=== PATIENT | female | born 1965 | race Caucasian/White ===

== ENCOUNTER 2017-04-11 08:07 | Outpatient (CLI) | payer OTHER ==
--- NOTE | 2017-04-11 10:39 | MRI ---
LUMBAR SPINE MRI: DATE: 04/11/17. COMPARISON: None. HISTORY: Back locks up, bilateral lower extremity radiculopathy, pain, lumbar radiculopathy. TECHNIQUE: Multiplanar, multisequence MR imaging of the lumbar spine provided without contrast. FINDINGS: The sagittal STIR imaging demonstrates no focal area of osseous marrow edema. At the L2 vertebral edgar dy, there is a lesion of increased T1 and T2 signal, evidence of hemangioma. Additional scattered he mangiomata are noted elsewhere within the lumbar spine. Assuming 5 lumbar-type vertebral bodies, the conus medullaris terminates at the L1-2 level. T12-L1: Mild bilateral facet hypertrophy. There is disk space narrowing and disk desiccation with a nterior osteophyte formation and a posterior disk-osteophyte complex. This causes no significant tamar tral canal or neural foraminal stenosis. L1-2: Mild bilateral facet hypertrophy. There is disk space narrowing and disk desiccation with ant erior osteophyte formation and a small posterior disk-osteophyte complex. No associated central amarjit l stenosis. There is mild bilateral neural foraminal stenosis. L2-3: Bilateral facet hypertrophy. There is a foraminal and post-foraminal disk protrusion on the l eft. There is mild left neural foraminal stenosis. No significant central canal or right neural for aminal stenosis. L3-4: Mild bilateral facet hypertrophy. There is disk space narrowing, disk desiccation, and mild d isk bulge with no significant central canal or neural foraminal stenosis. L4-5: There is disk desiccation, disk space narrowing, and mild disk bulge. There is mild bilateral facet hypertrophy. There is no significant central canal or neural foraminal stenosis. L5-S1: Mild bilateral facet hypertrophy. Normal intervertebral disk height and signal intensity wit h no significant central canal or neural foraminal stenosis. Small central annular tear noted. The imaged retroperitoneal structures appear grossly unremarkable. IMPRESSION: Scattered areas of degenerative change within the lumbar spine as described above. POS: [facility]
== END 2017-04-11 08:08 | disposition home or self-care (01) ==
LOC: TBSIIMAG 08:07
PROVIDERS: ATTEND Neurological Surgery
DX: M47.26 Other spondylosis with radiculopathy, lumbar region (principal)
CPT/HCPCS: 72148

== ENCOUNTER 2017-09-02 14:07 | Outpatient (CLI) | payer OTHER ==
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
== END 2017-09-02 14:08 | disposition home or self-care (01) ==
LOC: SCSMRI 14:07
PROVIDERS: ATTEND Orthopaedic Surgery Hand Surgery
DX: S63.512A Sprain of carpal joint of left wrist, initial encounter (principal); S63.591A Other specified sprain of right wrist, initial encounter

== ENCOUNTER 2017-11-04 09:32 | Outpatient (CLI) | payer OTHER ==
[2017-11-04 10:14] LABS: Bilirubin Negative (Negative); Blood, Urine Negative (Negative); Clarity CLEAR (Clear); Glucose, Urine (Dipstick) Negative (Negative); Leukocyte Negative (Negative); Nitrite Negative (Negative); Protein, Urine (Dipstick) Negative (Neg-Trace); Urobilinogen 0.2 mg/dL (0.2-1.0); pH, Urine 6.5 (5.0-9.0)
[2017-11-04 10:21] LABS: Bacteria/HPF Rare-Few HPF (None Seen); Hyaline Casts/LPF 0-3 HYALINE CAST LPF (0-3 Hyaline); Pathc Cast-AUWi Flag 0.29 (0-2.49); RBC/HPF 0-3 HPF (0-3); Squamous Epithelial 0-3 HPF (0-3); WBC/HPF 0-3 HPF (0-3)
[2017-11-04 10:22] LABS: #Basophils 0.1 thou/uL (0.0-0.2); #Eosinphils 0.3 thou/uL (0.0-0.7); #Lymphocytes 2.6 thou/uL (1.20-3.40); #Monocytes 0.4 thou/uL (0.11-0.59); #Neutrophils 2.6 thou/uL (1.40-6.50); %Basophils 1.4 % (0.0-1.0); %Eosinophils 4.3 % (0.0-10.0); %Lymphocytes 44.6 % (21.0-51.0); %Monocytes 6.2 % (0.0-10.0); %Neutrophils 43.4 % (42.0-75.0); Hemoglobin 14.8 g/dL (12.0-16.0); Mean Corpuscular HGB CONC 33.5 g/dL (32.0-36.0); Mean Corpuscular Hemoglobin 30.3 pg (27.0-31.0); Mean Corpuscular Volume 90.3 fL (78.0-98.0); Mean Platelet Volume 7.8 fL (7.4-10.4); Platelet Count 242 thou/uL (130-400); Red Blood Cell (RBC) Count 4.91 mill/uL (4.20-5.40); White Blood Cell (WBC) Count 5.9 thou/uL (4.8-10.8)
== END 2017-11-04 09:33 | disposition home or self-care (01) ==
LOC: LABBT 09:32
PROVIDERS: ATTEND Orthopaedic Surgery Hand Surgery
DX: Z01.812 Encounter for preprocedural laboratory examination (principal); M65.4 Radial styloid tenosynovitis [de Quervain]
CPT/HCPCS: 81001; 85025

== ENCOUNTER 2017-11-12 08:20 | Day surgery (SDC) | payer OTHER ==
[2017-11-04 09:38] VITALS: BMI 31.5
[2017-11-12] MEDS ORDERED: Ondansetron HCl/PF 4 MG/2 ML Vial ONE (09:35)
[2017-11-12] MEDS ORDERED: Scopolamine 1.5 mg/72 hour Patch ONE (09:35)
[2017-11-12] MEDS ORDERED: Famotidine/PF 20 mg/2ml Vial ONE (09:35)
[2017-11-12] MEDS ORDERED: CEFAZOLIN/Water 2 GM/20 ML SYRINGE ONE (09:35)
[2017-11-12] MEDS ORDERED: Promethazine HCl 25 MG/ML VIAL ONE (11:29)
[2017-11-12] MEDS ORDERED: Propofol 500 MG/50 ML VIAL ONE (11:29)
[2017-11-12] MEDS ORDERED: Fentanyl 100 MCG/2 ML VIAL ONE (11:29)
[2017-11-12] MEDS ORDERED: Midazolam HCl 2 mg/2 ml Vial ONE (11:29)
[2017-11-12] MEDS ORDERED: Bupivacaine PF 0.5% 30 ML VIAL ONE (11:30)
[2017-11-12] MEDS ORDERED: Betamet Acet/Betamet Na Ph 30 MG/5 ML VIAL ONE (11:30)
[2017-11-12] MEDS ORDERED: Sodium Chloride 0.9% 10 ML ONE (11:30)
[2017-11-12] MEDS ORDERED: Bacitracin Zinc Ointment 30 gm TUBE ONE (11:31)
[2017-11-12] MEDS ORDERED: PHENYLEPHRINE-NS 100 MCG/ML 10 ML SYRINGE ONE (13:00)
[2017-11-12] MEDS ORDERED: Lidocaine 1% PF 5 ML VIAL ONE (13:00)
[2017-11-12] MEDS ORDERED: Ketorolac Tromethamine 30 MG/ML VIAL ONE ×2 (13:00→13:20)
[2017-11-12] MEDS ORDERED: PROPOFOL 200 MG/20 ML VIAL ONE (13:00)
[2017-11-12] MEDS ORDERED: Dexamethasone 20 MG/5 ML VIAL ONE (13:00)
[2017-11-12] MEDS ORDERED: Succinylcholine Chloride 20 MG/ML 10 ml SYRINGE FS ONE (13:00)
--- NOTE | 2017-11-12 13:43 | OP ---
DATE OF PROCEDURE: 11/12/2017 SURGEON: Phillip Valencia M.D. PREOPERATIVE DIAGNOSES: 1. Right wrist extensor carpi ulnaris tendonitis. 2. Right wrist first dorsal compartment tenosynovitis with De Quervain's tenosynovitis. FINDINGS: Very tight retinaculum first dorsal compartment with 4 sleeves of tendon, 3 of abductor, s een within the canal and marked thickening. PROCEDURE PERFORMED: 1. Injection, extensor carpi ulnaris tendon (injection tendon aponeurosis) ulnar side of the right w rist. 2. Open first dorsal compartment release. 3. Extensor tenosynovectomy abductor pollicis longus tendon at the first dorsal compartment. COMPLICATIONS: None. INDICATION: Failed conservative treatment at both spots with MRI consistent with mild early fraying and tendinitis of the extensor carpi ulnaris without tear. DESCRIPTION OF PROCEDURE: After successful general endotracheal anesthesia, the limb was prepped and draped. The patient then had the 2 sites identified with the zigzag incision outlined, 2 cm long ov er the first dorsal compartment. It was here that we injected first with a 8 mL of 0.5% Marcaine aft er prep and drape as well as the injection, the aponeurosis into the extensor carpi ulnaris tendon wa s done under direct visualization using a 22 gauge needle, 1 mL 0.5% Marcaine with 1 mL of Celestone. This was tolerated well. We inflated tourniquet after exsanguinating the limb to 250 mmHg pressure. We then made a zigzag inc ision first dorsal compartment and released and visualized the superficial radial nerve branch, prote cting it from the center of the field with gentle retraction. We then visualized the very tight reti naculum, released retinacular with approximately 2/3 of the remnant being palm to prevent subluxation . We lifted up each tendon and found 4 separate tendon sleeves, 3 of which went to the abductor poll icis longus and only 1 to the extensor pollicis brevis. Extensor pollicis brevis nodule is in a sepa rate compartment so release of the outer sheath released it as well. There was moderate tenosynoviti s and thickening of the abductor pollicis longus tendon, so we performed an abductor pollicis longus radical extensor tenosynovectomy. No specimen was sent. We released the tourniquet. Hemostasis was obtained. We placed, 2 mL of Celestone along the tendon area and then closed the wound with a simple interrupted 4-0 nylon in a mattress pattern.
== END 2017-11-12 14:47 | disposition home or self-care (01) ==
LOC: SDC 08:20
PROVIDERS: ATTEND Orthopaedic Surgery Hand Surgery
PROC: 0LT50ZZ Resection of Right Lower Arm and Wrist Tendon, Open Approach (ICD-10-PCS; principal; 2017-11-12)
PROC: 3E0U3BZ Introduction of Anesthetic Agent into Joints, Percutaneous Approach (ICD-10-PCS; principal; 2017-11-12)
PROC: 3E0U33Z Introduction of Anti-inflammatory into Joints, Percutaneous Approach (ICD-10-PCS; principal; 2017-11-12)
DX: M65.4 Radial styloid tenosynovitis [de Quervain] (principal); M65.88 Other synovitis and tenosynovitis, other site; G43.909 Migraine, unspecified, not intractable, without status migrainosus; E55.9 Vitamin D deficiency, unspecified; Z79.82 Long term (current) use of aspirin; Z79.899 Other long term (current) drug therapy; Z91.041 Radiographic dye allergy status; Z88.5 Allergy status to narcotic agent; Z88.8 Allergy status to other drugs, medicaments and biological substances
CPT/HCPCS: 96372; 96374; A4216; J0702; J1100; J1885; J2001; J2250; J2405; J2550; J2704; J3010; J3490; S0020; S0028

== ENCOUNTER 2017-12-10 10:20 | Outpatient (CLI) | payer OTHER | END 2017-12-10 10:21 | disposition home or self-care (01) | LOC: BICMAMMO 10:20 | PROVIDERS: ATTEND Family Medicine | DX: Z12.31 Encounter for screening mammogram for malignant neoplasm of breast (principal); Z85.820 Personal history of malignant melanoma of skin | CPT/HCPCS: 77063; 77067 ==

== ENCOUNTER 2018-05-29 07:42 | Outpatient (CLI) | payer OTHER ==
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
== END 2018-05-29 07:43 | disposition home or self-care (01) ==
LOC: BICMRI 07:42
PROVIDERS: ATTEND Orthopaedic Surgery Hand Surgery
DX: M25.531 Pain in right wrist (principal); M25.532 Pain in left wrist

== ENCOUNTER 2018-11-20 10:09 | Outpatient (CLI) | payer OTHER ==
[2018-11-20 11:25] LABS: #Eosinphils 0.2 thou/uL (0.0-0.7); #Lymphocytes 2.1 thou/uL (1.20-3.40); #Monocytes 0.5 thou/uL (0.11-0.59); #Neutrophils 2.9 thou/uL (1.40-6.50); %Basophils 0.8 % (0.0-1.0); %Eosinophils 3.7 % (0.0-10.0); %Lymphocytes 36.7 % (21.0-51.0); %Monocytes 8.4 % (0.0-10.0); %Neutrophils 50.3 % (42.0-75.0); Hemoglobin 14.7 g/dL (12.0-16.0); Mean Corpuscular HGB CONC 32.7 g/dL (32.0-36.0); Mean Corpuscular Hemoglobin 30.1 pg (27.0-31.0); Mean Corpuscular Volume 91.9 fL (78.0-98.0); Mean Platelet Volume 8.6 fL (7.4-10.4); Platelet Count 225 thou/uL (130-400); RBC Distribution Width 12.2 % (11.5-14.5); White Blood Cell (WBC) Count 5.8 thou/uL (4.8-10.8)
[2018-11-20 11:39] LABS: Bilirubin Negative (Negative); Blood, Urine Negative (Negative); Clarity Clear (Clear); Glucose, Urine (Dipstick) Normal (Negative); Leukocyte Negative Leu/uL (Negative); Nitrite Negative (Negative); Protein, Urine (Dipstick) Negative (Neg-Trace); RBC/HPF 0-3 HPF (0-3); Squamous Epithelial 0-3 HPF (0-3); Urobilinogen Normal mg/dL (Less than 2); WBC/HPF 0-3 HPF (0-3)
[2018-11-20 11:43] LABS: Bacteria/HPF 1+ HPF (None Seen)
--- NOTE | 2018-11-20 16:59 | EKG ---
Test Reason : Blood Pressure : / mmHG Vent. Rate : 068 BPM Atrial Rate : 068 BPM P-R Int : 140 ms QRS Dur : 072 ms QT Int : 388 ms P-R-T Axes : 048 017 063 degrees QTc Int : 412 ms Normal sinus rhythm Low voltage QRS Cannot rule out Anterior infarct , age undetermined Abnormal ECG When compared with ECG of 11-JUN-2011 11:27, No significant change was found Confirmed by DR. Ronal STAPLETON ([id number]) on 11/20/2018 4:58:54 PM Referred By: ICTLALI Confirmed By:DR. Ronal STAPLETON
== END 2018-11-20 10:10 | disposition home or self-care (01) ==
LOC: LABBT 10:09
PROVIDERS: ATTEND Orthopaedic Surgery Hand Surgery
DX: Z01.818 Encounter for other preprocedural examination (principal); M77.8 Other enthesopathies, not elsewhere classified
CPT/HCPCS: 81001; 85025; 93005; 93010

== ENCOUNTER 2018-11-24 11:48 | Day surgery (SDC) | payer OTHER ==
[2018-11-20 10:37] VITALS: BMI 32.8
[2018-11-24] MEDS ORDERED: Midazolam HCl 2 mg/2 ml Vial ONE (12:30)
[2018-11-24] MEDS ORDERED: Fentanyl 100 MCG/2 ML VIAL ONE ×2 (12:30→13:22)
[2018-11-24] MEDS ORDERED: Scopolamine 1.5 mg/72 hour Patch ONE (12:38)
[2018-11-24] MEDS ORDERED: ceFAZolin Sodium (SDC) 2 GM/100 ML BAG ONE (12:49)
[2018-11-24] MEDS ORDERED: Bupivacaine PF 0.5% 30 ML VIAL ONE (13:04)
[2018-11-24] MEDS ORDERED: Bacitracin Zinc Ointment 30 gm TUBE ONE (13:04)
[2018-11-24] MEDS ORDERED: EPINEPHrine 1 MG/ML AMP ONE (13:04)
[2018-11-24] MEDS ORDERED: Propofol 1,000 MG/100 ML VIAL IV ONE (13:36)
[2018-11-24] MEDS ORDERED: Betamet Acet/Betamet Na Ph 30 MG/5 ML VIAL ONE (14:53)
[2018-11-24] MEDS ORDERED: Meperidine HCl/PF 25 MG/ML VIAL ONE (15:30)
--- NOTE | 2018-11-25 09:19 | OP ---
DATE OF PROCEDURE: 11/24/2018 PREOPERATIVE DIAGNOSIS: 1. Extensor carpi ulnaris tendinitis with possible interstitial tear. 2. Extensor carpi ulnaris tenosynovitis. 3. Proximal wrist synovitis. 4. Possible triangular fibrocartilage complex tear. FINDINGS: 1. Extensor carpi ulnaris tendinitis with possible interstitial tear with findings of almost 2 cm long strands of tears x3, beginning just proximal to the ulnar styloid course almost to the insertional area of extensor carpi ulnaris. 2. Extensor carpi ulnaris tenosynovitis. 3. Wrist synovitis, diffuse without triangular fibrocartilage tear, without intercarpal ligament tear, and significant chondromalacia not seen. PROCEDURES PERFORMED: At the left wrist; 1. Left extensor carpi ulnaris tenotomy. 2. Left extensor carpi ulnaris tenosynovectomy. 3. Left wrist arthroscopic synovectomy. SPECIMENS: Removed and sent to the lab, yes: 1. Tendon tear as a longitudinal after resection via tenotomy. 2. Tenosynovectomy with the synovial sampling of extensor carpi ulnaris. BLOOD LOSS: 10 mL. TOURNIQUET TIME: 19 minutes. INDICATIONS: The patient with pain of ulnar wrist. MRI showed no TFCC tear, no lunotriquetral tear, no ulnocarpal impingement, but there is always a question of triangular fibrocartilage tear based on exam and the MRI did show the extensor carpi ulnaris tendon had some longitudinal tearing, which must be addressed. DESCRIPTION OF PROCEDURE: After successful general without LMA technique, the limb was prepped and draped. The patient also had a block. She was placed in arm frost, after prepping and draping, and appropriate drapes were applied. We then established the 3/4 portal by placing two to three 3/4 portals, an 18-gauge regular needle, 10 mL normal saline. We then entered the joint at the 6R portal and the 3/4 portal. Panoramic view revealed intact intercarpal ligament and alignment, no triangular fibrocartilage tear, but some marked synovitis in the dorsal portion of the wrist at the radial ulnar articulation. This was trimmed with a 1.9 synovial resector, full-radius, and then we visualized intact TFCC, lateral recess, prestyloid and ulnar styloid recess was intact. There was no undue tension by the ulna on the triangular fibrocartilage. The lunotriquetral ligament was intact as was the scapholunate ligament. There was no radial styloid abnormality. The patient had all the scope removed. We closed the portals on the 3/4 area. We exsanguinated the limb, inflated the tourniquet at 250 mmHg pressure using the 6R portal as the most dorsal portion of our dissection and then carried volarly by 8 mm in length of 1 cm on either side of the wound. We carried to the skin and subcutaneous tissue and visualized the Y-type cachil dehe's foot bifurcation of the superficial ulnar nerve and protected from this in the field. We entered the tendon sheath, protecting the ulnar nerve, superficial branches, it was very thick, performed a formal tenosynovectomy especially under deep to the extensor carpi ulnaris and then found the longitudinal more dorsal and then ulnar, fraying aspects of the extensor carpi ulnaris tendon with the retinaculum moved. We then trimmed this to normal thickness, then used as a point of reference. Once the tenosynovectomy was completed from the extensor carpi ulnaris sheath, we then performed the tenotomy and finished. Once this was done, the panoramic view was completed, the arthroscope had been placed in the 6U and we saw no TFCC tear with excellent trampoline effect. On exam, with the shaver in the 3/4 portal, we then did arthroscopic synovectomy. All scope had been completely removed this time, we closed the sheath on the tenotomized and synovectomied extensor carpi ulnaris. flexor carpi ulnaris was not involved. The wounds were closed with hemostasis obtained, using interrupted 4-0 Monocryl, using the sheath, closure with a running 5-0 Prolene, dyed, excellent tension was found. We closed the subcutaneous tissue with interrupted 4-0 Monocryl and then the incision was closed with interrupted 4- 0 nylon mattress pattern except for the angle, which was simple. The portal was closed with the same 4-0 suture, and the patient had the Celestone injected in the tendon sheath before we closed the sheath. The patient had a short-arm splint applied and left the operating room without evidence of anesthetic or operative complication. Job ID: [id number]
== END 2018-11-24 14:10 | disposition home or self-care (01) ==
LOC: SDC 11:48
PROVIDERS: ATTEND Orthopaedic Surgery Hand Surgery
PROC: 0LB60ZZ Excision of Left Lower Arm and Wrist Tendon, Open Approach (ICD-10-PCS; principal; 2018-11-24)
PROC: 0RBP4ZZ Excision of Left Wrist Joint, Percutaneous Endoscopic Approach (ICD-10-PCS; principal; 2018-11-24)
PROC: 3E0T3BZ Introduction of Anesthetic Agent into Peripheral Nerves and Plexi, Percutaneous Approach (ICD-10-PCS; principal; 2018-11-24)
DX: M77.9 Enthesopathy, unspecified (principal); M65.832 Other synovitis and tenosynovitis, left forearm; S56.512A Strain of other extensor muscle, fascia and tendon at forearm level, left arm, initial encounter; G89.18 Other acute postprocedural pain; E07.9 Disorder of thyroid, unspecified; G43.909 Migraine, unspecified, not intractable, without status migrainosus; Z91.041 Radiographic dye allergy status; Z88.5 Allergy status to narcotic agent; Z88.8 Allergy status to other drugs, medicaments and biological substances; Z79.82 Long term (current) use of aspirin; Z79.899 Other long term (current) drug therapy
CPT/HCPCS: 88304; J0171; J0690; J0702; J2175; J2250; J2704; J3010; S0020

== ENCOUNTER 2018-12-31 10:36 | Outpatient (CLI) | payer OTHER ==
--- NOTE | 2018-12-31 11:41 | MMO ---
Bilateral MAMMO Bilat Screen [facility]. CLINICAL HISTORY: Patient is 53 years old and is seen for screening. The patient has no family history of breast cancer. The patient has a history of Skin cancer at age 38. The patient has a history of left Excisional Biopsy in 1999 - benign. VIEWS: The views performed were: bilateral craniocaudal with tomosynthesis and bilateral mediolateral oblique with tomosynthesis. FILMS COMPARED: The present examination has been compared to prior imaging studies performed at on 10/14/2008 and 12/10/2017. MAMMOGRAM FINDINGS: The breasts are heterogeneously dense, which could obscure a lesion on mammography. There are no suspicious masses, suspicious calcifications, or new areas of architectural distortion. IMPRESSION: THERE IS NO MAMMOGRAPHIC EVIDENCE OF MALIGNANCY. A ROUTINE FOLLOW-UP MAMMOGRAM IN 1 YEAR IS RECOMMENDED. THE RESULTS OF THIS EXAM WERE SENT TO THE PATIENT. ACR BI-RADS Category 1 - Negative MAMMOGRAPHY NOTE: 1. A negative mammogram report should not delay a biopsy if a dominant of clinically suspicious mass is present. 2. Approximately 10% to 15% of breast cancers are not detected by mammography. 3. Adenosis and dense breasts may obscure an underlying neoplasm. Reported by: ZANE DEAL MD Electonically Signed: [id number]
== END 2018-12-31 10:37 | disposition home or self-care (01) ==
LOC: BICMAMMO 10:36
PROVIDERS: ATTEND Family Medicine
DX: Z12.31 Encounter for screening mammogram for malignant neoplasm of breast (principal); Z85.828 Personal history of other malignant neoplasm of skin; Z91.89 Other specified personal risk factors, not elsewhere classified
CPT/HCPCS: 77063; 77067

== ENCOUNTER 2019-02-24 07:38 | Outpatient (CLI) | payer OTHER ==
--- NOTE | 2019-02-24 11:01 | RAD ---
Procedure: Left wrist arthrogram Preprocedure diagnosis: Left wrist pain [employer] Supervisor: Caro Anesthesia: 2 mL of buffered 1% lidocaine Contrast: 2 mL of gadolinium admixture Exposure: 3.4 Minutes fluoroscopic time; 0.577 morales per centimeter squared TECHNIQUE: Prior to the procedure, the risks and benefits of a wrist arthrogram were explained to the patient wh ich consented fully to the procedure. Supervisor [employer] radiographs were performed showing no significant degenerative changes. No fracture or dislocat ion are seen. A radiopaque marker was used to keri the site of best entry into the wrist joint. The wrist was then prepped and draped in the usual sterile fashion. Lidocaine was used to anesthetize the skin and soft tissues down to the joint. A 25-gauge spinal needle was then placed using fluoroscopic guidance into the joint. Contrast was adm inistered which conformed to the joint. There was a small amount of extravasation of contrast along the dorsal aspect of the wrist. A total of 2 mL of contrast was administered which adequately disten ded the capsule. The needle was then removed. The patient tolerated the procedure well without immediate post procedure complication. They were sen t to MRI for MRI of the wrist.
--- NOTE | 2019-02-24 15:47 | MRI ---
MR ARTHROGRAM OF THE LEFT WRIST: 02/24/19 INDICATION: History of primary arthritis of the left wrist. COMPARISON: MR of the left hand dated 05/29/18 and left wrist arthrogram dated 02/24/19. TECHNIQUE: Multiplanar and multisequence MR images were obtained of the left wrist following intra-articular adm inistration of a dilute gadolinium solution. Please see the left wrist arthrogram for details concern ing the injection technique. A moderate amount of extravasation is seen within the dorsal soft tissues. FINDINGS: There is contrast intensity noted within the radiocarpal joint, mid carpal joint, distal carpometacar pal articulations. There is visualization of portions of the dorsal and volar band of the scapholunat e ligament as well as the interosseous band. The lunatotriquetral ligament appears intact. The TFC is intact. There is mild first CMC osteoarthritic change with a subchondral cyst-like abnormality invol ving the base of the thumb metacarpal. The visualized carpal tunnel and its contents appear within no rmal limits. Ulnar neurovasculature appears within normal limits. The visualized extensor tendons are normal appearing. IMPRESSION: 1. Contrast extension seen diffusely entering through the radiocarpal joint, mid carpal joint, a nd distal carpometacarpal articulations is likely either related to technique of the wrist arthrogram injection or possibly small perforations within the scapholunate and intercarpal ligamentous structu res. Majority of the scapholunate ligament appears intact. The lunatotriquetral ligament appear intac t. The TFC is intact. 2. Mild first CMC osteoarthrosis. POS: [facility]
== END 2019-02-24 07:39 | disposition home or self-care (01) ==
LOC: RAD 07:38
PROVIDERS: ATTEND Orthopaedic Surgery Hand Surgery
DX: M19.032 Primary osteoarthritis, left wrist (principal); M18.12 Unilateral primary osteoarthritis of first carpometacarpal joint, left hand
CPT/HCPCS: 25246

== ENCOUNTER 2019-04-20 12:45 | Outpatient (CLI) | payer OTHER ==
--- NOTE | 2019-04-20 13:04 | RAD ---
XR Chest Pa Lat STANDARD HISTORY: Chest pain, shortness of breath COMPARISON: None FINDINGS: The heart size is normal. The lungs are well expanded without focal areas of consolidation, pneumothorax or pleural effusions. There are degenerative changes in the spine. The aorta is tortuous. IMPRESSION: No radiographic evidence of acute cardiopulmonary process.
== END 2019-04-20 12:46 | disposition home or self-care (01) ==
LOC: SCSRAD 12:45
PROVIDERS: ATTEND Family Medicine
DX: R07.9 Chest pain, unspecified (principal); R06.00 Dyspnea, unspecified
CPT/HCPCS: 36415; 71046; 80053; 83880; 85025; 85379

== ENCOUNTER 2019-05-06 01:02 | Inpatient (IN) | payer OTHER ==
[2019-05-06] MEDS ORDERED: Nitroglycerin 0.4 MG TAB 1 EACH ONE (01:18)
[2019-05-06] MEDS ORDERED: Aspirin 325 MG TAB ONE (01:18)
[2019-05-06 01:30] LABS: #Eosinphils 0.3 thou/uL (0.0-0.7); #Lymphocytes 3.5 thou/uL (1.20-3.40); #Monocytes 0.6 thou/uL (0.11-0.59); #Neutrophils 4.3 thou/uL (1.40-6.50); %Basophils 0.3 % (0.0-1.0); %Eosinophils 3.3 % (0.0-10.0); %Lymphocytes 40.4 % (21.0-51.0); %Monocytes 6.8 % (0.0-10.0); %Neutrophils 49.1 % (42.0-75.0); Hemoglobin 14.3 g/dL (12.0-16.0); Mean Corpuscular Hemoglobin 30.5 pg (27.0-31.0); Mean Corpuscular Volume 89.6 fL (78.0-98.0); Mean Platelet Volume 8.1 fL (7.4-10.4); Platelet Count 255 thou/uL (130-400); RBC Distribution Width 11.8 % (11.5-14.5); White Blood Cell (WBC) Count 8.7 thou/uL (4.8-10.8)
[2019-05-06 01:52] LABS: ALT (SGPT) 22 U/L (8-55); AST (SGOT) 19 U/L (5-34); Alkaline Phosphatase 71 U/L (40-110); Anion Gap 13 mmol/L (10-20); BUN (Urea Nitrogen) 16 mg/dL (9.8-20.1); Bilirubin, Total Less than 0.2 mg/dL (0.2-1.2); Calc. Creatinine Clearance 0 mL/min (70-130); Calcium 9.7 mg/dL (7.8-10.44); Carbon Dioxide 27 mmol/L (22-29); Chloride 104 mmol/L (98-107); Estimated GFR-MDRD 71; Glucose 117 mg/dL (70-105); Potassium 3.7 mmol/L (3.5-5.1); Sodium 140 mmol/L (136-145)
[2019-05-06] MEDS ORDERED: Nitroglycerin 0.4 MG TAB (25 Tab Bottle) PO PRN (04:52)
[2019-05-06] MEDS ORDERED: Promethazine 25 MG TAB PO PRN (04:55)
[2019-05-06] MEDS ORDERED: Acetaminophen 325 MG TAB PO PRN (05:03)
[2019-05-06 05:23] VITALS: BMI 34.5
[2019-05-06] MEDS ORDERED: Ondansetron PF 4 MG/2 ML Vial IVP PRN (05:26)
[2019-05-06] MEDS ORDERED: Ondansetron ODT 4 MG TAB PO PRN (05:26)
[2019-05-06] MEDS ORDERED: Calcium Carbonate 500 MG ChewTAB PO PRN (05:26)
[2019-05-06] MEDS ORDERED: Senokot S 8.6-50 MG TAB PO PRN (05:26)
[2019-05-06] MEDS ORDERED: ALPRAZolam 0.25 MG TAB PO PRN (05:27)
[2019-05-06] MEDS ORDERED: cloNIDine 0.1 MG TAB PO PRN (05:27)
[2019-05-06 05:34] LABS: Troponin I Less than 0.010 ng/mL (< 0.028)
--- NOTE | 2019-05-06 05:52 | HP ---
PRIMARY CARE PHYSICIAN: Gayle Balderas MD CHIEF COMPLAINT: Chest discomfort. HISTORY OF PRESENT ILLNESS: The patient is a 53-year-old female who presented to the emergency room with above complaints. Over the last 2 weeks, the patient has intermittent substernal chest pain radiating to her left shoulder. The pain is pressure-like, worse on mild exertion. She denies any nausea, vomiting, diaphoresis, palpitations, or syncope. Her symptoms are progressively getting worse. She was evaluated by Cardiology, Dr. Young last week and is scheduled for echocardiogram as well as stress in the second week of May. She contacted Dr. Young's office due to her symptoms worsening and was started on low-dose metoprolol one day ago. The pain was 4/10 without any relieving factor. She is chest pain free at this time. She received nitroglycerin along with aspirin in the emergency room. The patient denies any recent travel or immobilization. She denies any worsening of bilateral lower extremity swelling. PAST MEDICAL HISTORY: 1. Hypothyroidism. 2. Migraines. 3. Macular degeneration. 4. History of bilateral hip bursitis. 5. History of basal cell carcinoma. PAST SURGICAL HISTORY: 1. Colonoscopy in 2009. 2. Hysterectomy with bilateral salpingo-oophorectomy at age of 33 due to history of endometriosis and ovarian cyst. 3. Right wrist surgery. 4. Left hand surgery. 5. Lumpectomy. ALLERGIES: THE PATIENT IS ALLERGIC TO IODINE, MORPHINE, CODEINE, TOPAMAX, AND TRAMADOL. CURRENT HOME MEDICATIONS: 1. Levothyroxine 75 mcg daily. 2. Toprol-XL 25 mg daily. 3. Estradiol patch as directed. 4. Aspirin 81 mg daily. FAMILY HISTORY: Positive for premature coronary artery disease. SOCIAL HISTORY: She is , lives at home with her family. Denies any smoking or drug use. REVIEW OF SYSTEMS: All other review of systems were reviewed and were found negative. PHYSICAL EXAMINATION: VITAL SIGNS: Temperature 97.9, respirations 20, pulse of 75, blood pressure 154/90 with O2 saturation 99% on room air. GENERAL: A 53-year-old female, in no apparent distress. Denies any chest discomfort at this time. HEENT: Head, atraumatic and normocephalic. Sclerae anicteric. Moist mucous membranes. No oral lesion. NECK: Supple. No JVD appreciated. No carotid bruit. LUNGS: Clear to auscultation bilaterally. No wheezing, rales, or rhonchi. HEART: S1 and S2 present. Regular rate and rhythm. No rubs or gallops. ABDOMEN: Soft, nontender. Bowel sounds present. EXTREMITIES: No edema or calf tenderness. NEUROLOGIC: Grossly nonfocal. Moves all 4 extremities. PSYCHIATRY: Alert, awake, and oriented x3. SKIN: Warm and dry. LYMPH NODES: No palpable lymph nodes in the neck. PERIPHERAL VASCULAR: Radial pulses palpable bilaterally and equal. LABORATORY FINDINGS: CBC showed WBC 8.7 with hemoglobin 14.3, hematocrit 42.1, and platelet of 255. Chemistry showed sodium 140, potassium 3.7, chloride 104, bicarb 27, BUN of 16, creatinine 0.83. Troponin was negative. BNP 11.8. EKG by my review showed sinus rhythm without significant ST-T wave changes. IMAGING STUDIES: Chest x-ray by my review was negative for infiltrate or edema. IMPRESSION: 1. Chest discomfort, rule out acute coronary syndrome. 2. Family history of heart disease. 3. Iodine allergy. 4. History of migraines. 5. Chronic kidney disease, stage 2. 6. Hypothyroidism. 7. Obesity with a BMI of 34.5. PLAN: The patient will be monitored in the telemetry unit. Her symptoms are concerning for cardiac event. She has history of premature coronary artery disease in her family. She is scheduled for an outpatient stress test and echocardiogram in 2 weeks. We will schedule a stress test and echo during this hospitalization due to persistent chest discomfort, worsening over the last 2 weeks. We will continue low-dose aspirin. We will resume metoprolol after the stress test. Continue levothyroxine. We will get serial troponins. Plan of care was discussed with the patient in detail. She stated understanding. We will consult Cardiology if the stress test is abnormal. Job ID: [id number]
[2019-05-06] MEDS: Levothyroxine Sodium 75 MCG TAB PO SCH (06:27)
--- NOTE | 2019-05-06 07:50 | RAD ---
EXAM: Single view of the chest HISTORY: Chest pain COMPARISON: 04/20/2019 FINDINGS: Single view of the chest shows a normal sized cardiomediastinal silhouette. There is no esther dence of consolidation, mass, or pleural effusion. The bones are unremarkable. IMPRESSION: No evidence of acute cardiopulmonary disease
[2019-05-06 08:11] LABS: Troponin I 0.026 ng/mL (< 0.028)
[2019-05-06] MEDS ORDERED: Artificial Tears 18 DROP/0.9 ML EA EYE PRN (08:25)
[2019-05-06] MEDS ORDERED: Zolpidem Tartrate 5 MG TAB PO PRN (08:25)
[2019-05-06] MEDS ORDERED: Loperamide HCl 2 MG CAP PO PRN (08:25)
[2019-05-06] MEDS ORDERED: Sodium Chloride 0.65% Nasal 44 ML BOT EA NARE PRN (08:25)
[2019-05-06] MEDS ORDERED: Loratadine 10 MG TAB PO PRN (08:25)
[2019-05-06] MEDS ORDERED: Diabetic Tussin 200 MG/10 ML UDCUP PO PRN (08:25)
[2019-05-06] MEDS ORDERED: Cepastat Lozenges 1 LOZ PO PRN (08:25)
[2019-05-06] MEDS: Aspirin 81 mg Enteric Coated Tablet PO SCH (08:47)
[2019-05-06] MEDS ORDERED: Aspirin 325 mg Enteric Coated Tablet PO SCH (09:00)
--- NOTE | 2019-05-06 12:31 | NM ---
EXAM: Nuclear medicine cardiac perfusion examination with ejection fraction HISTORY: Chest pain TECHNIQUE: Rest images: 10.5 mCi technetium 99m sestamibi Stress images: 28.0 mCi of technetium 9M sestamibi; treadmill using a Timothy protocol. The patient ach ieved 92% maximum predicted heart rate. COMPARISON: 06/12/2011 FINDINGS: Tomographic images: Medium-sized, moderate intensity reversible defect along the anterior wall extend ing to the apex Gated images: Normal wall motion and ejection fraction of 66%. EDV: 70 mL LHR: 0.5 TID: 0.8 IMPRESSION: Anterior ischemia
--- NOTE | 2019-05-06 13:01 | PDOC.HOSPP ---
- Subjective Encounter Date: 05/06/19 Encounter Time: 13:58 Subjective: Patient seen and examined. No new complaints. No overnight events - Objective Vital Signs & Weight: Vital Signs (12 hours) Temp Pulse Resp BP BP Pulse Ox 05/06/19 12:15 97.3 F L 79 19 129/66 99 05/06/19 08:04 97.8 F 71 16 119/72 96 05/06/19 07:32 94 L 05/06/19 04:19 97.5 F L 68 18 134/86 94 L Weight Weight 182 lb 12.8 oz Result Diagrams: 05/06/19 01:20 05/06/19 01:20 Radiology Reviewed by me: Yes EKG Reviewed by me: Yes Hospitalist ROS - Review of Systems ENT: denies: ear pain, ear discharge, nose pain, nose discharge, nose congestion , mouth pain, mouth swelling, throat pain, throat swelling, other Respiratory: denies: cough, dry, shortness of breath, hemoptysis, SOB with excertion, pleuritic pain, sputum, wheezing, other Cardiovascular: denies: chest pain, palpitations, orthopnea, paroxysmal noc. dyspnea, edema, light headedness, other Gastrointestinal: denies: nausea, vomiting, abdominal pain, diarrhea, constipation, melena, hematochezia, other Genitourinary: denies: dysuria, frequency, incontinence, hematuria, retention, other Musculoskeletal: denies: neck pain, shoulder pain, arm pain, back pain, hand pain, leg pain, foot pain, other - Medication Medications: Active Medications Generic Name Dose Route Start Last Admin Trade Name Kingq PRN Reason Stop Dose Admin Aspirin 81 mg 05/06/19 09:00 05/06/19 08:47 Ecotrin PO 81 mg DAILY LUDY Administration Levothyroxine Sodium 75 mcg 05/06/19 06:00 05/06/19 06:27 Synthroid PO 75 mcg 0600 LUDY Administration Metoprolol Succinate 25 mg 05/06/19 11:00 05/06/19 12:45 Toprol Xl PO 25 mg 1100 LUDY Administration - Exam General Appearance: NAD, awake alert Eye: PERRL, anicteric sclera ENT: normocephalic atraumatic, no oropharyngeal lesions Neck: supple, symmetric, no JVD, no thyromegaly Heart: RRR, no murmur, no gallops, no rubs Respiratory: CTAB, no wheezes, no rales, no ronchi Gastrointestinal: soft, non-tender, non-distended, normal bowel sounds Extremities: no cyanosis, no clubbing, no edema Skin: normal turgor, no lesions Neurological: cranial nerve grossly intact, no focal deficits Musculoskeletal: normal tone, normal strength Psychiatric: normal affect, normal behavior Hosp A/P (1) Chest pain Code(s): R07.9 - CHEST PAIN, UNSPECIFIED Status: Acute (2) Abnormal stress test Status: Acute (3) Hypothyroidism Code(s): E03.9 - HYPOTHYROIDISM, UNSPECIFIED Status: Chronic (4) Obesity (BMI 30.0-34.9) Code(s): E66.9 - OBESITY, UNSPECIFIED Status: Chronic - Plan old records reviewed/req 05/06/19 consult cardiology for abnormal stress test medication reviewed and continue to provide symptomatic treatment
[2019-05-06] MEDS ORDERED: Communication Order-Pharmacy FS SCH (17:45)
[2019-05-06] MEDS ORDERED: predniSONE 20 MG TAB PO SCH (18:00)
[2019-05-06] MEDS ORDERED: Pantoprazole 40 MG GRANULES PACKET PO SCH (21:00)
[2019-05-06] MEDS: Atorvastatin Calcium 40 MG TAB PO SCH (21:37)
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
[2019-05-07 06:01] LABS: Cardiac Risk 3.2 (Less than 4.5)
[2019-05-07] MEDS: Levothyroxine Sodium 75 MCG TAB PO SCH (06:03)
[2019-05-07] MEDS: Aspirin 81 mg Enteric Coated Tablet PO SCH (08:21)
[2019-05-07] MEDS: Pantoprazole 40 MG GRANULES PACKET PO SCH (08:21)
[2019-05-07] MEDS ORDERED: diphenhydrAMINE 50 MG/ML VIAL IVP SCH (09:00)
[2019-05-07] MEDS ORDERED: predniSONE 20 MG TAB PO SCH (09:00)
[2019-05-07] MEDS ORDERED: Pantoprazole 40 MG GRANULES PACKET PO SCH (10:15)
[2019-05-07] MEDS ORDERED: Iopamidol 370 76% 100 ML VIAL ONE (10:35)
[2019-05-07] MEDS ORDERED: Iopamidol 370 76% 50 ML VIAL FS ONE (10:35)
[2019-05-07] MEDS ORDERED: Heparin 10,000 UNITS/1 ML VIAL ONE (10:51)
[2019-05-07] MEDS ORDERED: Verapamil 5 MG/2 ML VIAL ONE (10:51)
[2019-05-07] MEDS ORDERED: Nitroglycerin 100MG/250ML BOT 250 ML ONE (10:51)
[2019-05-07] MEDS ORDERED: Heparin (Artline) 1,000 ML ONE (10:51)
[2019-05-07] MEDS ORDERED: Midazolam HCl 2 mg/2 ml Vial ONE ×2 (11:32→11:55)
[2019-05-07] MEDS ORDERED: TICAGRELOR 90 MG TABLET ONE (12:54)
--- NOTE | 2019-05-07 12:57 | PDOC.HOSPP ---
- Subjective Encounter Date: 05/07/19 Encounter Time: 10:15 Subjective: Patient seen and examined. No new complaints. No overnight events - Objective Vital Signs & Weight: Vital Signs (12 hours) Temp Pulse Resp BP Pulse Ox 05/07/19 07:37 97.7 F 74 17 123/71 97 05/07/19 03:56 97.7 F 79 16 121/69 95 Weight Weight 182 lb 12.8 oz Result Diagrams: 05/06/19 01:20 05/06/19 01:20 EKG Reviewed by me: Yes Hospitalist ROS - Review of Systems ENT: denies: ear pain, ear discharge, nose pain, nose discharge, nose congestion , mouth pain, mouth swelling, throat pain, throat swelling, other Respiratory: denies: cough, dry, shortness of breath, hemoptysis, SOB with excertion, pleuritic pain, sputum, wheezing, other Cardiovascular: denies: chest pain, palpitations, orthopnea, paroxysmal noc. dyspnea, edema, light headedness, other Gastrointestinal: denies: nausea, vomiting, abdominal pain, diarrhea, constipation, melena, hematochezia, other Genitourinary: denies: dysuria, frequency, incontinence, hematuria, retention, other Musculoskeletal: denies: neck pain, shoulder pain, arm pain, back pain, hand pain, leg pain, foot pain, other Skin: denies: rash, lesions, jaime, bruising, other - Medication Medications: Active Medications Generic Name Dose Route Start Last Admin Trade Name Freq PRN Reason Stop Dose Admin Acetaminophen 650 mg 05/06/19 05:03 05/07/19 03:46 Tylenol PO 650 mg Q4H PRN Administration Headache/Fever or Mild Pain Aspirin 81 mg 05/06/19 09:00 05/07/19 08:21 Ecotrin PO 81 mg DAILY LUDY Administration Atorvastatin Calcium 40 mg 05/06/19 21:00 05/06/19 21:37 Lipitor PO 40 mg HS LUDY Administration Diphenhydramine HCl 50 mg 05/07/19 09:00 05/07/19 10:59 Benadryl IVP 50 mg WILLCALL LUDY Administration Levothyroxine Sodium 75 mcg 05/06/19 06:00 05/07/19 06:03 Synthroid PO 75 mcg 0600 LUDY Administration Metoprolol Succinate 25 mg 05/06/19 11:00 05/07/19 10:14 Toprol Xl PO 25 mg 1100 LUDY Administration Ondansetron HCl 4 mg 05/06/19 05:26 05/06/19 21:43 Zofran Odt PO 4 mg Q6H PRN Administration Nausea/Vomiting Promethazine HCl 25 mg 05/06/19 04:55 05/07/19 08:20 Phenergan PO 25 mg Q4HR PRN Administration Nausea - Exam General Appearance: NAD, awake alert Eye: PERRL, anicteric sclera ENT: normocephalic atraumatic, no oropharyngeal lesions Neck: supple, symmetric, no JVD, no thyromegaly Heart: RRR, no murmur, no gallops, no rubs Respiratory: CTAB, no wheezes, no rales, no ronchi Gastrointestinal: soft, non-tender, non-distended, normal bowel sounds Extremities: no cyanosis, no clubbing Skin: normal turgor, no lesions Neurological: cranial nerve grossly intact, normal sensation to touch Musculoskeletal: normal tone, normal strength Psychiatric: normal affect, normal behavior Hosp A/P (1) Chest pain Code(s): R07.9 - CHEST PAIN, UNSPECIFIED Status: Acute (2) Abnormal stress test Status: Acute (3) Hypothyroidism Code(s): E03.9 - HYPOTHYROIDISM, UNSPECIFIED Status: Chronic (4) Obesity (BMI 30.0-34.9) Code(s): E66.9 - OBESITY, UNSPECIFIED Status: Chronic - Plan old records reviewed/req, plan discussed w/ family 05/06/19 consult cardiology for abnormal stress test medication reviewed and continue to provide symptomatic treatment 05/07/19 if cath negative, will dc if requires stent, will observe overnight medically stable and discussed with pt and her
--- NOTE | 2019-05-07 16:58 | EKG ---
Test Reason : POST STENT Blood Pressure : / mmHG Vent. Rate : 076 BPM Atrial Rate : 076 BPM P-R Int : 164 ms QRS Dur : 074 ms QT Int : 396 ms P-R-T Axes : 066 -09 058 degrees QTc Int : 445 ms Normal sinus rhythm Normal ECG When compared with ECG of 06-MAY-2019 01:12, (Unconfirmed) No significant change was found Confirmed by DR. Ronal STAPLETON ([id number]) on 05/07/2019 4:58:20 PM Referred By: LEEANN Confirmed By:DR. Ronal STAPLETON
[2019-05-07] MEDS: TICAGRELOR 90 MG TABLET PO SCH (21:12)
[2019-05-07] MEDS: Atorvastatin Calcium 40 MG TAB PO SCH (21:12)
[2019-05-08 05:10] LABS: #Eosinphils 0.1 thou/uL (0.0-0.7); #Lymphocytes 3.2 thou/uL (1.20-3.40); #Monocytes 0.7 thou/uL (0.11-0.59); #Neutrophils 6.6 thou/uL (1.40-6.50); %Basophils 0.3 % (0.0-1.0); %Eosinophils 1.1 % (0.0-10.0); %Lymphocytes 30.1 % (21.0-51.0); %Monocytes 6.4 % (0.0-10.0); %Neutrophils 62.1 % (42.0-75.0); Hemoglobin 13.5 g/dL (12.0-16.0); Mean Corpuscular HGB CONC 33.2 g/dL (32.0-36.0); Mean Corpuscular Hemoglobin 29.7 pg (27.0-31.0); Mean Corpuscular Volume 89.7 fL (78.0-98.0); Mean Platelet Volume 8.1 fL (7.4-10.4); Platelet Count 255 thou/uL (130-400); RBC Distribution Width 11.9 % (11.5-14.5); Red Blood Cell (RBC) Count 4.55 mill/uL (4.20-5.40); White Blood Cell (WBC) Count 10.6 thou/uL (4.8-10.8)
[2019-05-08 05:27] LABS: ALT (SGPT) 16 U/L (8-55); AST (SGOT) 15 U/L (5-34); Albumin 3.4 g/dL (3.5-5.0); Alkaline Phosphatase 63 U/L (40-110); Anion Gap 12 mmol/L (10-20); BUN (Urea Nitrogen) 14 mg/dL (9.8-20.1); Bilirubin, Total 0.3 mg/dL (0.2-1.2); Calc. Creatinine Clearance 119 mL/min (70-130); Calcium 8.8 mg/dL (7.8-10.44); Carbon Dioxide 23 mmol/L (22-29); Chloride 108 mmol/L (98-107); Estimated GFR-MDRD 87; Globulin 2.5 g/dL (2.4-3.5); Glucose 103 mg/dL (70-105); Potassium 3.6 mmol/L (3.5-5.1); Protein, Total 5.9 g/dL (6.0-8.3); Sodium 139 mmol/L (136-145)
[2019-05-08] MEDS: Levothyroxine Sodium 75 MCG TAB PO SCH (05:36)
[2019-05-08] MEDS: Aspirin 81 mg Enteric Coated Tablet PO SCH (08:19)
[2019-05-08] MEDS: TICAGRELOR 90 MG TABLET PO SCH (08:20)
[2019-05-08] MEDS: Pantoprazole 40 MG GRANULES PACKET PO SCH (08:20)
--- NOTE | 2019-05-08 08:22 | PDOC.CPN ---
- Subjective Date: 05/08/19 Time: 08:30 Interval history: The pt seen and examined. No overnight events. No cardiac complaints. - Objective Allergies/Adverse Reactions: Allergies Allergy/AdvReac Type Severity Reaction Status Date / Time Iodinated Contrast Media Allergy Hives Verified 05/06/19 03:02 [Iodinated Contrast- Oral and IV Dye] morphine Allergy SOB, Verified 05/06/19 03:02 severe headache, nausea vomiting codeine AdvReac Nausea and Verified 05/06/19 03:02 vomiting topiramate [From Topamax] AdvReac itch Verified 05/06/19 03:02 tramadol AdvReac nausea Verified 05/06/19 03:02 vomiting Visit Medications: Current Medications Acetaminophen (Tylenol) 650 mg PO Q4H PRN PRN Reason: Headache/Fever or Mild Pain Last Admin: 05/07/19 03:46 Dose: 650 mg Alprazolam (Xanax) 0.25 mg PO BIDPRN PRN PRN Reason: Anxiety Artificial Tears (Tears Naturale) 2 drop EA EYE PRN PRN PRN Reason: Dry Eyes Aspirin (Ecotrin) 81 mg PO DAILY [facility] Last Admin: 05/08/19 08:19 Dose: 81 mg Atorvastatin Calcium (Lipitor) 40 mg PO HS [facility] Last Admin: 05/07/19 21:12 Dose: 40 mg Calcium Carbonate (Tums) 1,000 mg PO Q4H PRN PRN Reason: Heartburn or Indigestion Clonidine (Catapres) 0.1 mg PO Q4H PRN PRN Reason: SBP Greater Than 180 Diphenhydramine HCl (Benadryl) 50 mg IVP WILLCALL [facility] Last Admin: 05/07/19 10:59 Dose: 50 mg Guaifenesin (Robitussin Sf) 200 mg PO Q4H PRN PRN Reason: Cough Levothyroxine Sodium (Synthroid) 75 mcg PO 0600 [facility] Last Admin: 05/08/19 05:36 Dose: 75 mcg Loperamide HCl (Imodium) 2 mg PO PRN PRN PRN Reason: Diarrhea/Loose Stools Loratadine (Claritin) 10 mg PO DAILYPRN PRN PRN Reason: Sinus Symptoms Metoprolol Succinate (Toprol Xl) 25 mg PO 1100 [facility] Last Admin: 05/07/19 10:14 Dose: 25 mg Nitroglycerin (Nitrostat) 0.4 mg PO Q5MIN PRN PRN Reason: Chest Pain Ondansetron HCl (Zofran Odt) 4 mg PO Q6H PRN PRN Reason: Nausea/Vomiting Last Admin: 05/06/19 21:43 Dose: 4 mg Ondansetron HCl (Zofran) 4 mg IVP Q6H PRN PRN Reason: Nausea/Vomiting Pantoprazole Sodium (Protonix) 40 mg PO DAILY [facility] Last Admin: 05/08/19 08:20 Dose: 40 mg Promethazine HCl (Phenergan) 25 mg PO Q4HR PRN PRN Reason: Nausea Last Admin: 05/07/19 08:20 Dose: 25 mg Senna/Docusate Sodium (Senokot S) 2 tab PO BID PRN PRN Reason: Constipation Sodium Chloride (Flush - Normal Saline) 10 ml IVF PRN PRN PRN Reason: Saline Flush Sodium Chloride ([place] Nasal [place] 0.65%) 0 ml EA NARE QIDPRN PRN PRN Reason: Nasal Congestion Throat Lozenges (Cepastat Lozenges) 1 yenni PO Q2H PRN PRN Reason: Sore Throat Ticagrelor (Brilinta) 90 mg PO BID [facility] Last Admin: 05/08/19 08:20 Dose: 90 mg Zolpidem Tartrate (Ambien) 5 mg PO HSPRN PRN PRN Reason: Insomnia Vital Signs & Weight: Vital Signs Temp Pulse Resp BP Pulse Ox 05/08/19 05:28 97.8 F 86 18 126/71 96 05/07/19 22:45 86 14 138/80 96 Weight 182 lb 12.8 oz - Physical Exam General: alert & oriented x3 HEENT: mucus membranes moist Neck: supple neck Cardiac: regular rate and rhythm, S1/S2 Lungs: clear to auscultation Extremities: no edema - Labs Result Diagrams: 05/08/19 04:40 05/08/19 04:40 Troponin/CKMB Troponin I 0.026 ng/mL (< 0.028) 05/06/19 07:23 - Telemetry Sinus rhythms and dysrhythmias: sinus rhythm - Assessment/Plan Assessment/Plan: 1. CAD with s/p CARLOS ENRIQUE placement in mid LAD on 05/07/2019 - stable; on metoprolol, Lipitor, Brilinta and ASA; 2. Hypothyroidism 3. Obesity - strongly recommend to start regular exercise and watching her diet 4. dyslipidemia. started on lipitor. MAR reviewed * She is stable to d/c home today; the pt will f/u with Dr Mccarthy's office within 2 -4 wks * Brilinta coupon given to the pt Pt. seen and eval. by me. I agree with the A/P by the GREIGE MENDER. She has not had any further chest pain. Ready for d/c after stent to the LAD. chest clear. RRR.Radial site good. nl. pulse. gjm
[2019-05-08 08:41] VITALS: TEMP 97.2
[2019-05-08 10:51] VITALS: BP 124/80
--- NOTE | 2019-05-08 11:47 | DIS ---
DATE OF ADMISSION: 05/06/2019 DATE OF DISCHARGE: 05/08/2019 DIAGNOSES: 1. Unstable angina. 2. Hypothyroidism. 3. Obesity. DRIP PUMPER: Laurence Tejada MD PROCEDURE: Echocardiogram, EKG, nuclear stress test, cardiac catheterization with stent placement, and chest x-ray. COURSE OF HOSPITALIZATION: Uncomplicated. Responded well to management. The patient is clinically stable at this time without any chest pain, without any shortness of breath, being discharged home. DISCHARGE MEDICATIONS: For discharge medication, please see discharge medication reconciliation sheet. FOLLOWUP: The patient is to follow up with her primary care physician and also with Cardiology. PHYSICAL EXAMINATION: GENERAL: Today, the patient is alert, oriented, in no distress. VITAL SIGNS: Her latest vital signs show a temperature of 97.2, pulse rate 85, respiratory rate 18, and blood pressure 124/80. HEAD AND NECK: Normal. HEART: She has regular S1 and S2. LUNGS: Clear. ABDOMEN: Benign. EXTREMITIES: Limbs show no edema. DISCHARGE TIME: 32 minutes. Job ID: [id number]
--- NOTE | 2019-05-08 16:32 | EKG ---
Test Reason : Blood Pressure : / mmHG Vent. Rate : 076 BPM Atrial Rate : 076 BPM P-R Int : 162 ms QRS Dur : 076 ms QT Int : 368 ms P-R-T Axes : 062 006 064 degrees QTc Int : 414 ms Normal sinus rhythm Low voltage QRS Borderline ECG When compared with ECG of 07-MAY-2019 13:27, No significant change was found Confirmed by DR. Ronal STAPLETON ([id number]) on 05/08/2019 4:31:48 PM Referred By: LEEANN Confirmed By:DR. Ronal STAPLETON
== END 2019-05-08 11:27 | disposition home or self-care (01) | DRG 247 ==
LOC: ERS 01:02 → OBSVTOIN 04:32 → 2SW 04:32
PROVIDERS: ADMIT Internal Medicine; ATTEND Internal Medicine
PROC: 027034Z Dilation of Coronary Artery, One Artery with Drug-eluting Intraluminal Device, Percutaneous Approach (ICD-10-PCS; principal; 2019-05-07)
PROC: B2111ZZ Fluoroscopy of Multiple Coronary Arteries using Low Osmolar Contrast (ICD-10-PCS; 2019-05-07)
PROC: 4A023N7 Measurement of Cardiac Sampling and Pressure, Left Heart, Percutaneous Approach (ICD-10-PCS; 2019-05-07)
DX: I25.110 Atherosclerotic heart disease of native coronary artery with unstable angina pectoris (principal); E03.9 Hypothyroidism, unspecified; G43.909 Migraine, unspecified, not intractable, without status migrainosus; H35.30 Unspecified macular degeneration; N18.2 Chronic kidney disease, stage 2 (mild); C44.91 Basal cell carcinoma of skin, unspecified; E78.00 Pure hypercholesterolemia, unspecified; I12.9 Hypertensive chronic kidney disease with stage 1 through stage 4 chronic kidney disease, or unspecified chronic kidney disease; E66.9 Obesity, unspecified; Z90.710 Acquired absence of both cervix and uterus; Z68.34 Body mass index [BMI] 34.0-34.9, adult; Z88.8 Allergy status to other drugs, medicaments and biological substances; Z88.6 Allergy status to analgesic agent; Z91.041 Radiographic dye allergy status
CPT/HCPCS: 36415; 71045; 78452; 80053; 80061; 83880; 84484; 85025; 85347; 92928; 93005; 93010; 93017; 93306; 93458; 93798; 94760; 99152; 99153; A9500; C1769; C1874; C1887; C9600; J1200; J1644; J2250; J7512; Q0162; Q0169; Q9967

== ENCOUNTER 2019-06-23 10:19 | Observation (INO) | payer OTHER ==
[2019-06-23 10:53] LABS: #Eosinphils 0.2 thou/uL (0.0-0.7); #Lymphocytes 2.2 thou/uL (1.20-3.40); #Monocytes 0.5 thou/uL (0.11-0.59); #Neutrophils 3.1 thou/uL (1.40-6.50); %Basophils 0.5 % (0.0-1.0); %Eosinophils 3.1 % (0.0-10.0); %Lymphocytes 37.2 % (21.0-51.0); %Monocytes 7.6 % (0.0-10.0); %Neutrophils 51.6 % (42.0-75.0); Hemoglobin 14.6 g/dL (12.0-16.0); Mean Corpuscular HGB CONC 33.4 g/dL (32.0-36.0); Mean Corpuscular Hemoglobin 30.4 pg (27.0-31.0); Mean Corpuscular Volume 90.9 fL (78.0-98.0); Platelet Count 239 thou/uL (130-400); RBC Distribution Width 12.2 % (11.5-14.5); Red Blood Cell (RBC) Count 4.81 mill/uL (4.20-5.40)
[2019-06-23 11:07] LABS: ALT (SGPT) 17 U/L (8-55); AST (SGOT) 17 U/L (5-34); Albumin 4.1 g/dL (3.5-5.0); Alkaline Phosphatase 72 U/L (40-110); Anion Gap 14 mmol/L (10-20); BUN (Urea Nitrogen) 16 mg/dL (9.8-20.1); Bilirubin, Total 0.6 mg/dL (0.2-1.2); Calc. Creatinine Clearance 0 mL/min (70-130); Calcium 9.4 mg/dL (7.8-10.44); Carbon Dioxide 25 mmol/L (22-29); Chloride 101 mmol/L (98-107); Estimated GFR-MDRD 83; Globulin 2.7 g/dL (2.4-3.5); Glucose 99 mg/dL (70-105); Potassium 4.1 mmol/L (3.5-5.1); Protein, Total 6.8 g/dL (6.0-8.3); Sodium 136 mmol/L (136-145)
--- NOTE | 2019-06-23 12:25 | RAD ---
1 VIEW CHEST: Date: 06/23/2019 HISTORY: Pain. COMPARISON: 05/06/2019. FINDINGS: Normal cardiac silhouette. Lungs and pleural spaces are clear. No pneumothorax or osseous abnormaliti es. IMPRESSION: No acute cardiopulmonary process. POS: [facility]
[2019-06-23] MEDS ORDERED: Promethazine 25 MG TAB PO PRN (14:35)
[2019-06-23] MEDS ORDERED: ESTRADIOL TOP SCH (14:45)
[2019-06-23 14:52] LABS: Troponin I Less than 0.010 ng/mL (< 0.028)
[2019-06-23] MEDS ORDERED: Guaifenesin DM 100-10/5 ML UDCUP PO PRN (15:09)
[2019-06-23] MEDS ORDERED: Acetaminophen 325 MG TAB PO PRN (15:09)
[2019-06-23] MEDS ORDERED: Senokot S 8.6-50 MG TAB PO PRN (15:09)
[2019-06-23] MEDS ORDERED: Ondansetron ODT 4 MG TAB PO PRN (15:09)
[2019-06-23] MEDS ORDERED: Acetaminophen 650 MG Suppository PR PRN (15:09)
[2019-06-23] MEDS ORDERED: Ondansetron PF 4 MG/2 ML Vial IVP PRN (15:09)
[2019-06-23] MEDS ORDERED: Nitroglycerin 0.4 MG TAB (25 Tab Bottle) SL PRN (15:20)
--- NOTE | 2019-06-23 16:07 | HP ---
PRIMARY CARE PHYSICIAN: Dr. Gayle Balderas. CHIEF COMPLAINT: Chest pain. HISTORY OF PRESENT ILLNESS: This is a 53-year-old white female with recently diagnosed coronary artery disease, 99% stenosis of the proximal LAD, status post stent placed on May [address] Tejada. The patient has been having substernal chest pressure, pain worsening over about a week, some radiation into the left shoulder. This improved, never completely went away after the stent placement, however, but she was doing much better. She had been in cardiac rehab, then starting yesterday while she was sitting at rest, she started having severe worsening of the central chest pressure, over to the left side a little bit as well. It is not radiating anywhere else. No associated symptoms. No nausea. No diaphoresis. No shortness of breath. No things that specifically make it worse or better. She states the pain does feel the same as when she came in initially and had the LAD stent placed. The patient presented to the emergency room. She had negative troponin, negative EKG. The chest pain is a little bit better now, but still present. She has been compliant with her aspirin and Plavix. REVIEW OF SYSTEMS: CONSTITUTIONAL: No fevers. No chills. EYES: No double vision or blurred vision. ENT: No congestion, drainage, or sore throat. CARDIOVASCULAR: See HPI. PULMONARY: No coughing, wheezing, or shortness of breath. GASTROINTESTINAL: No abdominal pain. No nausea or vomiting. No diarrhea or constipation. GENITOURINARY: No dysuria or hematuria. MUSCULOSKELETAL: No muscle aches or joint pain. SKIN: No rashes or other lesions noted. NEUROLOGIC: No numbness, tingling, or focal weakness. PAST MEDICAL HISTORY: 1. Coronary artery disease with LAD stent. 2. Hypothyroidism. 3. Migraines. 4. Macular degeneration. 5. History of bilateral hip bursitis. 6. History of basal cell carcinoma. PAST SURGICAL HISTORY: 1. LAD stent placement on May 07, 2019. 2. Colonoscopy in 2009. 3. Hysterectomy with bilateral salpingo-oophorectomy at age 33 due to endometriosis and ovarian cysts. 4. Right wrist surgery. 5. Left hand surgery. 6. Lumpectomy. SOCIAL HISTORY: The patient denies tobacco, alcohol, or illicit drug use. She is and lives with her family. FAMILY HISTORY: Positive for premature coronary artery disease in multiple family members. ALLERGIES: IODINE, MORPHINE, CODEINE, TOPAMAX, AND TRAMADOL. CURRENT MEDICATIONS: 1. Aspirin 81 mg daily. 2. Plavix 75 mg daily. 3. Levothyroxine 88 mcg on Saturday, Saturday, and Saturday, and 75 mcg on Saturday, Saturday, , and Saturday. 4. Nitroglycerin p.r.n. pain. She did take one dose prior to the hospital without any significant improvement at that time. PHYSICAL EXAMINATION: VITAL SIGNS: Blood pressure 127/86, pulse 77, respirations 16, temperature 98.2, O2 saturations 97% on room air. GENERAL: This is a well-developed, well-nourished, white female, in no acute distress. HEENT: Pupils are equal, round, and reactive to light. Oropharynx is clear without lesions, erythema, or exudate. NECK: Supple. No lymphadenopathy. No thyroid nodules or enlargement. No JVD. HEART: Regular rate and rhythm. No murmurs, rubs, or gallops. LUNGS: Clear to auscultation bilaterally. No wheezes, crackles, or rhonchi. No chest wall tenderness to palpation. ABDOMEN: Soft, nontender to palpation. Normoactive bowel sounds. No hepatosplenomegaly or other masses. EXTREMITIES: No clubbing, cyanosis, or edema. SKIN: No rashes or other lesions noted. NEUROLOGIC: Intact strength and sensation in all extremities. No facial droop. PSYCHIATRIC: Alert and oriented x3. Normal mood and affect. LABORATORY DATA: CBC within normal limits. Complete metabolic panel within normal limits. Troponin negative x2. Chest x-ray; I did review the chest x-ray done in the emergency room along with the radiologist's report, it does show no acute cardiopulmonary process. EKG; I did review the EKG done in the emergency room, which shows normal sinus rhythm at 65 beats per minute with low-voltage QRS, but no other abnormalities, no ST changes, no T-wave inversions, normal EKG. ASSESSMENT: 1. Chest pain, consistent with her previous unstable angina in the setting of a stent placement a month and half ago. The patient has no evidence of acute myocardial infarction at this time. There is no elevation of her cardiac markers or changes in her EKG. We will consult Dr. Tejada and see if the patient needs any invasive evaluation in that stent. We will give nitroglycerin as needed for pain. 2. Coronary artery disease. We will continue aspirin and Plavix. 3. Hypothyroidism. We will resume the patient's levothyroxine. 4. Gastrointestinal prophylaxis. Put the patient on Pepcid twice a day. 5. Deep venous thrombosis prophylaxis. We will have the patient ambulate frequently and SCDs while in bed. 6. Code status: The patient is a full code. Should she be incapacitated, she states that her will be her medical decision maker, his name is Donell Dawson. Job ID: [id number]
[2019-06-23 17:47] VITALS: BMI 32.9
[2019-06-23 18:18] LABS: Troponin I Less than 0.010 ng/mL (< 0.028)
[2019-06-23] MEDS ORDERED: Communication Order-Pharmacy FS SCH (19:15)
[2019-06-23] MEDS: Famotidine 20 MG TAB PO SCH (20:16)
[2019-06-23] MEDS ORDERED: Atorvastatin Calcium 40 MG TAB PO SCH (21:00)
[2019-06-23] MEDS ORDERED: TICAGRELOR 90 MG TABLET PO SCH (21:00)
[2019-06-23] MEDS ORDERED: Sodium Chloride 0.9% (PF) 10 ML VIAL FS PRN (21:55)
[2019-06-23] MEDS ORDERED: Pantoprazole 40 MG VIAL IVP SCH (22:00)
[2019-06-23] MEDS ORDERED: predniSONE 20 MG TAB PO SCH (22:00)
--- NOTE | 2019-06-24 00:47 | CON ---
DATE OF CONSULTATION: PRIMARY CARE PHYSICIAN: Gayle Balderas MD PRIMARY SOFTWARE APPLICATIONS ARCHITECT: Laurence Tejada MD REASON FOR CARDIOLOGY CONSULT: Chest pain and recent stent placement. HISTORY OF PRESENT ILLNESS: Ms. Dawson is a very present 53-year-old female with a significant history of coronary artery disease with status post stent placement in the LAD on May 07, [address] Tejada, hypothyroidism, and hypertension. The patient was relatively doing well until yesterday morning after she has had a cardiac rehab for almost 1 hour. She started having chest pressure to the mediastinal area through the overnight and the patient even after she took the nitroglycerin sublingual this morning, the patient's symptoms did not improve. The patient decided to present to the emergency department for further evaluation and treatment. During the exercise yesterday morning, she did not have any shortness of breath, chest pressure, discomfort, or any other cardiac complaints. She stopped Brilinta, which she took for 1 month and I changed to Plavix 75 mg once a day. She checked her blood pressure at home, which is stable per patient. The patient had echocardiogram done on May 06, 2019 with EF 60% to 65%, trace mitral valve regurgitation and tricuspid regurgitation. The patient underwent a cardiac catheterization on May 06, 2019 with 90% stenosis in the LAD with status post drug eluted stent in proximal LAD with normal coronary artery disease in RCA and left circumflex. PAST MEDICAL HISTORY: 1. Coronary artery disease with drug-eluted stent in the LAD. 2. Hypothyroidism. 3. Migraines. 4. Macular degeneration. 5. History of bilateral hip bursitis. 6. History of basal cell carcinoma. PAST SURGICAL HISTORY: 1. History of stent placement on May 06, 2019. 2. Hysterectomy. 3. Right wrist surgery. 4. Left hand surgery. 5. Lumpectomy. FAMILY HISTORY: Positive for premature coronary artery disease in multiple family members, SOCIAL HISTORY: She is . She is living with her . She denies EtOH, tobacco, or illicit drug abuse. She has been exercising at the cardiac rehab almost 1 hour 3 days a week without any cardiac complaints till yesterday. 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 ALLERGIES: SHE IS ALLERGIC TO IODINE, MORPHINE, CODEINE, TOPAMAX, AND TRAMADOL. HOME MEDICATIONS: 1. Aspirin 81 mg once a day. 2. Imitrex 100 mg every 2 hours as needed. 3. Toradol 10 mg every 6 hours as needed. 4. Phenergan 25 mg every 4 hours as needed. 5. Vitamin D3. 6. Isordil. 7. Nitroglycerin. 8. Lipitor 40 mg once a day. 9. Pepcid 20 mg twice a day. 10. Plavix 75 mg once a day. 11. Levothyroxine 75 mcg once a day. 12. Metoprolol 25 mg once a day. 13. Vitamin E. REVIEW OF SYSTEMS: 12-point review of systems negative unless otherwise mentioned in HPI. PHYSICAL EXAMINATION: VITAL SIGNS: Blood pressure 113/74, pulse is 88, sinus rhythm, respiratory rate 17, O2 saturation 95% on room air. GENERAL: The patient is alert and oriented x4, not in acute distress. HEENT: Normocephalic, atraumatic. EYES: Extraocular muscle movement intact. ENT; mouth, oral and nasal mucosa moist without lesion. She wears glasses. NECK: Supple. Normal range of motion. No JVD. RESPIRATORY: Clear to auscultate bilaterally. No wheezing, rales, or rhonchi noted. CARDIOVASCULAR: Regular rate and rhythm. Normal S1 and S2. There is no S3 or S4. No significant murmur, hives, or thrill noted. 2+ pulses in bilateral upper and lower extremities. No edema in the lower extremities. Carotid pulses are present without bruit or thrill. ABDOMEN: Soft, nontender. No mass to palpitate. Bowel sounds are present. MUSCULOSKELETAL: The patient able to move all extremities without difficulty. The patient denied claudication. SKIN: Warm and dry. No lesion, rash, or erythema noted. NEUROLOGIC: The patient is alert and oriented. Nonfocal. PSYCHIATRIC: The patient's mood is appropriate. LABORATORY DATA: WBC 6.0, hemoglobin 14.6, hematocrit 43.8, platelets 239. Sodium 136, potassium 4.1, BUN 16, creatinine 0.73, glucose 99, AST 17, ALT 17. Troponin is negative x2. TSH is 0.0569, free T3 is 3.41 and free T4 is 1.23 and LDL is 128 on May 07, 2019. Chest x-ray, no acute cardiopulmonary process. ASSESSMENT AND PLAN: 1. Chest pain. The patient's vital signs are stable and the patient's EKG have not showed ST-segment changes or T-wave inversion. The patient's troponins have been negative x2. She just had another troponin draw just now and the result is pending at this moment. At this moment, she continued having mild pressure to the chest area. I would like to discuss with Dr. Tejada for further evaluation and treatment plan. However, at this moment, according to the patient's cardiac catheterization report, the patient had very normal coronary arteries in RCA and left circumflex and at this moment, the patient's LAD is wide open. She is on metoprolol 25 mg once a day, aspirin, Plavix 75 mg once a day. Since she took this morning, the medication is going to be resumed from tomorrow. 2. Coronary artery disease with history of drug eluted stent placement on May 06, 2019. She is on a beta polina, aspirin, Plavix, atorvastatin. We would like to continue to monitor on the telemetry. 3. Hypertension. The patient's blood pressure is stable at this moment with current medication. 4. Hypothyroidism, which is managed by primary care doctor. Thank you very much for Cardiology Service to participate in the care of this patient. We will follow along the patient's care team and make further recommendations as appropriate. Job ID: [id number]
[2019-06-24 05:21] LABS: #Lymphocytes 0.9 thou/uL (1.20-3.40); #Monocytes 0.1 thou/uL (0.11-0.59); #Neutrophils 7.1 thou/uL (1.40-6.50); %Eosinophils 0.3 % (0.0-10.0); %Lymphocytes 11.1 % (21.0-51.0); %Monocytes 1.3 % (0.0-10.0); %Neutrophils 87.4 % (42.0-75.0); Hemoglobin 14.9 g/dL (12.0-16.0); Mean Corpuscular HGB CONC 33.3 g/dL (32.0-36.0); Mean Corpuscular Hemoglobin 30.1 pg (27.0-31.0); Mean Corpuscular Volume 90.6 fL (78.0-98.0); Mean Platelet Volume 8.7 fL (7.4-10.4); Platelet Count 236 thou/uL (130-400); RBC Distribution Width 12.1 % (11.5-14.5); Red Blood Cell (RBC) Count 4.95 mill/uL (4.20-5.40); White Blood Cell (WBC) Count 8.1 thou/uL (4.8-10.8)
[2019-06-24] MEDS: Famotidine 20 MG TAB PO SCH (05:36)
[2019-06-24 05:39] LABS: Anion Gap 11 mmol/L (10-20); BUN (Urea Nitrogen) 19 mg/dL (9.8-20.1); Calc. Creatinine Clearance 109 mL/min (70-130); Calcium 9.6 mg/dL (7.8-10.44); Carbon Dioxide 22 mmol/L (22-29); Chloride 106 mmol/L (98-107); Estimated GFR-MDRD 83; Glucose 172 mg/dL (70-105); Potassium 4.3 mmol/L (3.5-5.1); Sodium 135 mmol/L (136-145)
[2019-06-24] MEDS ORDERED: Levothyroxine Sodium 75 MCG TAB PO SCH (06:00)
[2019-06-24] MEDS ORDERED: diphenhydrAMINE 50 MG/ML VIAL IVP SCH (07:30)
--- NOTE | 2019-06-24 07:59 | PDOC.CPN ---
- Subjective Date: 06/24/19 Time: 08:03 Interval history: The pt seen and examined. No overnight events. She cont. having chest pressure at upper MS area. - Objective Allergies/Adverse Reactions: Allergies Allergy/AdvReac Type Severity Reaction Status Date / Time Iodinated Contrast Media Allergy Hives Verified 06/23/19 17:56 [Iodinated Contrast- Oral and IV Dye] morphine Allergy SOB, Verified 06/23/19 17:56 severe headache, nausea vomiting codeine AdvReac Nausea and Verified 06/23/19 17:56 vomiting topiramate [From Topamax] AdvReac itch Verified 06/23/19 17:56 tramadol AdvReac nausea Verified 06/23/19 17:56 vomiting Visit Medications: Current Medications Acetaminophen (Tylenol) 650 mg PO Q4H PRN PRN Reason: Headache/Fever/Mild Pain (1-3) Last Admin: 06/24/19 05:35 Dose: 650 mg Acetaminophen (Tylenol) 650 mg DE Q4H PRN PRN Reason: Headache/Fever/Mild Pain (1-3) Aspirin (Ecotrin) 81 mg PO DAILY [facility] Last Admin: 06/24/19 05:35 Dose: 81 mg Atorvastatin Calcium (Lipitor) 40 mg PO HS [facility] Last Admin: 06/23/19 20:16 Dose: 40 mg Cholecalciferol (Vitamin D3) 3,000 units PO MWF@0900 [facility] Clopidogrel Bisulfate (Plavix) 75 mg PO DAILY [facility] Last Admin: 06/24/19 05:36 Dose: 75 mg Diphenhydramine HCl (Benadryl) 50 mg IVP ONCALL-OR [facility] Stop: 06/25/19 07:31 Famotidine (Pepcid) 20 mg PO BID [facility] Last Admin: 06/24/19 05:36 Dose: 20 mg Guaifenesin/Dextromethorphan (Robitussin Dm) 15 ml PO Q4H PRN PRN Reason: Cough Levothyroxine Sodium (Synthroid) 75 mcg PO 0600 [facility] Last Admin: 06/24/19 05:36 Dose: 75 mcg Metoprolol Succinate (Toprol Xl) 12.5 mg PO HS [facility] Last Admin: 06/23/19 20:54 Dose: 12.5 mg Miscellaneous Information (Communication Order-Pharmacy) 0 each FS ONE [facility] Stop: 06/24/19 19:16 Nitroglycerin (Nitrostat) 0.4 mg SL Q5MIN PRN PRN Reason: Chest Pain Non-Formulary Medication (Estradiol [Estradiol Patch]) 1 patch TOP ASDIR LUDY Ondansetron HCl (Zofran Odt) 4 mg PO Q6H PRN PRN Reason: Nausea/Vomiting Ondansetron HCl (Zofran) 4 mg IVP Q6H PRN PRN Reason: Nausea/Vomiting Pantoprazole Sodium (Protonix) 40 mg IVP Q12HR LUDY Prednisone (Prednisone) 40 mg PO QAM-WM LUDY Promethazine HCl (Phenergan) 25 mg PO Q4H PRN PRN Reason: Nausea Last Admin: 06/24/19 05:35 Dose: 25 mg Senna/Docusate Sodium (Senokot S) 2 tab PO BIDPRN PRN PRN Reason: Constipation Sodium Chloride (Normal Saline Pf) 10 ml FS PRN PRN PRN Reason: RECONSTITUTION Vitamin E (Vitamin E) 400 units PO MWF@0900 [facility] Vital Signs & Weight: Vital Signs Temp Pulse Resp BP BP Pulse Ox 06/24/19 07:19 97.6 F 80 16 108/55 L 92 L 06/24/19 05:04 98.3 F 84 16 97/60 96 06/23/19 23:15 97.5 F L 80 15 109/70 97 Weight 174 lb 8 oz - Physical Exam General: alert & oriented x3 HEENT: mucus membranes moist Neck: supple neck Cardiac: regular rate and rhythm, S1/S2 Lungs: clear to auscultation - Labs Result Diagrams: 06/24/19 04:49 06/24/19 04:49 Troponin/CKMB Troponin I Less than 0.010 ng/mL (< 0.028) 06/23/19 17:41 - Telemetry Sinus rhythms and dysrhythmias: sinus rhythm - Assessment/Plan Assessment/Plan: 1. CAD with hx of CARLOS ENRIQUE in LAD in 05/2019 - cont chest pressure to upper MS area ( for 2 days); plan for LHC today by Dr Tejada; on BBlocker, Statin and ASA and Plavix. 2. Hypothyroidism 3. HLD - on Statin MAR reviewed Pt. seen and eval. by me .I agree with the A/P by the [employer]. She had a cardiac cath this AM. The Coronaries are normal. The previously placed stent tin the LAD is patent. I checked her platelt Fx. with the plavix assay and this seems to be working for her. She can be d/c'd today. May need to see GI as an outpt. preethi
[2019-06-24] MEDS ORDERED: predniSONE 20 MG TAB PO SCH (08:00)
[2019-06-24] MEDS ORDERED: Vitamin E 400 UNITS CAP PO SCH (09:00)
[2019-06-24] MEDS ORDERED: Aspirin 81 mg Enteric Coated Tablet PO SCH (09:00)
[2019-06-24] MEDS ORDERED: Clopidogrel Bisulfate 75 MG TAB PO SCH (09:00)
[2019-06-24] MEDS ORDERED: Pantoprazole 40 MG VIAL IVP SCH (09:00)
[2019-06-24] MEDS ORDERED: Heparin (Artline) 1,000 ML ONE (09:07)
[2019-06-24] MEDS ORDERED: Lidocaine 1% (PF) 30 ML VIAL ONE (09:07)
--- NOTE | 2019-06-24 09:27 | CON ---
DATE OF CONSULTATION: 06/23/2019 ADDENDUM: INDICATION FOR CONSULTATION: A 53-year-old female, who underwent angioplasty and stent placement on May 06 or with a stent to the left anterior descending artery for subtotal proximal left anterior descending artery stenosis. She had chest pressure and pain, which has been on and off for relatively constant. She had no EKG changes at that time but during the stress test, she had evidence of anterior wall ischemia, underwent cardiac catheterization, and was found to have significant stenosis for which she underwent repair, angioplasty and stent placement. Since that time, she has been doing relatively well until yesterday or today when she started having more chest discomfort which she describes as being heaviness. Her enzymes are negative. EKG is unremarkable. This is very similar to the pain she experienced prior to undergoing the angioplasty and stent placement. Given her previous presentation without any significant EKG changes or enzymes, it is felt that she best would be served by undergoing a repeat cardiac catheterization tomorrow for evaluation of the stent that was placed in the proximal left anterior descending artery. This is a large vessel and should this have any acute closure, would be most likely a large anterior myocardial infarction. We will plan for the cardiac catheterization in the morning. Please refer to the notes already dictated by my nurse practitioner, Angelina Paz, who has already seen this patient earlier today this evening for her remainder of the note that has been dictated. Her hemoglobin is 14.6. Her cardiac enzymes are negative x3. Her creatinine is 0.73. Sodium is 136. Her EKG is unremarkable but given her overall presentation and the recent stent that was placed, I would proceed with cardiac catheterization. The only changes after being on Brilinta for approximately 1 month, she was changed over to Plavix for the last several days or week. At this time, I will most likely place her back on the Brilinta. Actually, we will first repeat the cardiac catheterization. If there is any indication, she needs to undergo repeat angioplasty or stent placement. Most likely, we will resume with Brilinta and proceed that medication rather than the Plavix but this time, she appears to be stable. I do not see any EKG changes and enzymes are negative x3 despite still having chest pain. Job ID: [id number]
[2019-06-24] MEDS ORDERED: Nitroglycerin 100MG/250ML BOT 250 ML ONE (09:30)
[2019-06-24] MEDS ORDERED: Heparin 10,000 UNITS/1 ML VIAL ONE (09:30)
[2019-06-24] MEDS ORDERED: Verapamil 5 MG/2 ML VIAL ONE (09:30)
[2019-06-24] MEDS ORDERED: Midazolam HCl 2 mg/2 ml Vial ONE (09:51)
[2019-06-24] MEDS ORDERED: Sodium Chloride 0.9% 200 ML IV PRN (10:31)
[2019-06-24] MEDS ORDERED: Nitroglycerin 0.4 MG TAB (25 Tab Bottle) SL PRN (10:31)
[2019-06-24] MEDS ORDERED: Iopamidol 370 76% 100 ML VIAL ONE (12:20)
[2019-06-24 16:20] VITALS: BP 120/77; TEMP 98
--- NOTE | 2019-06-24 22:56 | DIS ---
DATE OF ADMISSION: 06/23/2019 DATE OF DISCHARGE: 06/24/2019 DISCHARGE DISPOSITION: Home. FOLLOWUP: 1. Follow up with primary care physician, Dr. Gayle Hoffman, in 1 week. 2. Follow up with Cardiology, Dr. Tejada, as scheduled. Patient was seen and examined on the day of discharge. Denies any new complaints. No chest pain reported. BRIEF HOSPITAL COURSE: The patient is a 53-year-old female with recent LAD stent placement, presented to the emergency room with chest discomfort. She was monitored on the telemetry unit. Her troponins remain negative. The patient underwent cardiac catheterization that showed normal coronaries with a patent stent in the LAD. No changes in her medications were made. The patient is chest pain free at this time and has been cleared by Cardiology for discharge. FINAL DIAGNOSES: 1. Chest discomfort, acute coronary syndrome ruled out. 2. Coronary artery disease, status post drug-eluting stent placement in LAD last month. 3. Hyperlipidemia. 4. Hypothyroidism. 5. Obesity with a BMI of 33. 6. Hyponatremia. 7. Chronic kidney disease stage 2. The patient understands the above plan of care. Job ID: [id number]
== END 2019-06-24 18:36 | disposition home or self-care (01) ==
LOC: ERS 10:19 → ERHOLD 12:33 → 2SW 17:28
PROVIDERS: ADMIT Internal Medicine Cardiovascular Disease; ATTEND Internal Medicine Cardiovascular Disease
PROC: 4A023N7 Measurement of Cardiac Sampling and Pressure, Left Heart, Percutaneous Approach (ICD-10-PCS; principal; 2019-06-24)
PROC: B2111ZZ Fluoroscopy of Multiple Coronary Arteries using Low Osmolar Contrast (ICD-10-PCS; 2019-06-24)
DX: R07.89 Other chest pain (principal); I25.10 Atherosclerotic heart disease of native coronary artery without angina pectoris; E03.9 Hypothyroidism, unspecified; G43.909 Migraine, unspecified, not intractable, without status migrainosus; E87.1 Hypo-osmolality and hyponatremia; N18.2 Chronic kidney disease, stage 2 (mild); E66.9 Obesity, unspecified; Z68.33 Body mass index [BMI] 33.0-33.9, adult; Z79.02 Long term (current) use of antithrombotics/antiplatelets; Z79.82 Long term (current) use of aspirin; Z79.899 Other long term (current) drug therapy; Z88.5 Allergy status to narcotic agent; Z91.041 Radiographic dye allergy status; Z95.5 Presence of coronary angioplasty implant and graft
CPT/HCPCS: 36415; 71045; 80048; 80053; 84484; 85025; 85576; 93005; 93458; 94760; 96374; 96375; 96376; 99152; C1769; C9113; G0378; J1200; J1644; J2001; J2250; J7512; Q0169; Q9967

== ENCOUNTER 2020-02-10 07:47 | Outpatient (CLI) | payer OTHER ==
--- NOTE | 2020-02-10 08:30 | BD ---
DEXA BONE DENSITOMETRY: (Dual energy x-ray absorptiometry) DATE: 02/10/2020 HISTORY: 54-year old white female for age-related, post-menopausal, osteoporosis screening. Weight: 174 lbs Height: 61 in. Age of menopause: 34 COMPARISON: 06/27/2016 FINDINGS: The bone mineral density (BMD) is given in grams per square centimeter (g/cm2): LUMBAR SPINE: BMD (g/cm^2) T score Z score L1: 1.084 0.9 1.9 L2: 1.124 0.9 2.0 L3: 1.128 0.4 1.6 L4: 1.035 -0.2 1.0 Total: 1.091 0.4 1.6 Change in BMD compared to previous DEXA: + 4.9 %. HIP: BMD (g/cm^2) T score Z score Femoral neck: 0.788 -0.6 0.6 Total: 1.083 1.2 1.9 Change in BMD compared to previous DEXA: -4.6 %. IMPRESSION: 1.) The mean bone mineral density of the lumbar spine is normal. Fracture risk is not increased. 2) The bone mineral density of the femoral neck is normal. Fracture risk is not increased.
--- NOTE | 2020-02-10 09:18 | MMO ---
Bilateral MAMMO Bilat Screen [facility]. CLINICAL HISTORY: Patient is 54 years old and is seen for screening. The patient has no family history of breast cancer. The patient has a history of Skin cancer at age 38. The patient has a history of left Excisional Biopsy in 1999 - benign. VIEWS: The views performed were: bilateral craniocaudal with tomosynthesis and bilateral mediolateral oblique with tomosynthesis. FILMS COMPARED: The present examination has been compared to prior imaging studies performed at 10/14/2008, 12/10/2017 and 12/31/2018. This study has been interpreted with the assistance of computer-aided detection. MAMMOGRAM FINDINGS: The breasts are heterogeneously dense, which could obscure a lesion on mammography. There are stable benign appearing calcifications seen in both breasts. There are no suspicious masses, suspicious calcifications, or new areas of architectural distortion. IMPRESSION: THERE IS NO MAMMOGRAPHIC EVIDENCE OF MALIGNANCY. A ROUTINE FOLLOW-UP MAMMOGRAM IN 1 YEAR IS RECOMMENDED. THE RESULTS OF THIS EXAM WERE SENT TO THE PATIENT. ACR BI-RADS Category 2 - Benign finding MAMMOGRAPHY NOTE: 1. A negative mammogram report should not delay a biopsy if a dominant of clinically suspicious mass is present. 2. Approximately 10% to 15% of breast cancers are not detected by mammography. 3. Adenosis and dense breasts may obscure an underlying neoplasm. Reported by: OZZIE CHOWDHURY MD Electonically Signed: [id number]
== END 2020-02-10 07:48 | disposition home or self-care (01) ==
LOC: BICMAMMO 07:47
PROVIDERS: ATTEND Advanced Practice Midwife
DX: Z12.31 Encounter for screening mammogram for malignant neoplasm of breast (principal); Z13.820 Encounter for screening for osteoporosis; Z85.828 Personal history of other malignant neoplasm of skin; Z91.89 Other specified personal risk factors, not elsewhere classified
CPT/HCPCS: 77063; 77067; 77080

== ENCOUNTER 2020-08-11 08:55 | Outpatient (CLI) | payer OTHER | END 2020-08-11 08:56 | disposition home or self-care (01) | LOC: BICMAMMO 08:55 | PROVIDERS: ATTEND Family Medicine | DX: N63.11 Unspecified lump in the right breast, upper outer quadrant (principal) | CPT/HCPCS: G0279 ==

== ENCOUNTER 2020-10-06 07:39 | Outpatient (CLI) | payer OTHER | END 2020-10-06 07:40 | disposition home or self-care (01) | LOC: BICMRI 07:39 | PROVIDERS: ATTEND Nurse Practitioner Acute Care | DX: G43.709 Chronic migraine without aura, not intractable, without status migrainosus (principal); R25.3 Fasciculation; R90.82 White matter disease, unspecified | CPT/HCPCS: 70553; 82565 ==

== ENCOUNTER 2020-12-01 15:54 | Observation (INO) | payer OTHER ==
[2020-12-01] MEDS ORDERED: Aspirin Chewable 81 MG TAB ONE (16:32)
[2020-12-01] MEDS ORDERED: Nitroglycerin 2% Ointment 1 INCH/1 GM Packet ONE (16:36)
[2020-12-01 16:45] LABS: #Basophils 0.1 thou/uL (0.0-0.2); #Eosinphils 0.2 thou/uL (0.0-0.7); #Lymphocytes 2.8 thou/uL (1.20-3.40); #Monocytes 0.5 thou/uL (0.11-0.59); #Neutrophils 3.6 thou/uL (1.40-6.50); %Eosinophils 3.1 % (0.0-10.0); %Lymphocytes 39.5 % (21.0-51.0); %Monocytes 6.5 % (0.0-10.0); %Neutrophils 49.9 % (42.0-75.0); Hemoglobin 14.8 g/dL (12.0-16.0); Mean Corpuscular HGB CONC 33.9 g/dL (32.0-36.0); Mean Corpuscular Volume 94.4 fL (78.0-98.0); Mean Platelet Volume 8.6 fL (7.4-10.4); Platelet Count 223 thou/uL (130-400); RBC Distribution Width 11.8 % (11.5-14.5); Red Blood Cell (RBC) Count 4.62 mill/uL (4.20-5.40); White Blood Cell (WBC) Count 7.2 thou/uL (4.8-10.8)
[2020-12-01 17:06] LABS: ALT (SGPT) 17 U/L (8-55); AST (SGOT) 22 U/L (5-34); Albumin 4.4 g/dL (3.5-5.0); Alkaline Phosphatase 80 U/L (40-110); Anion Gap 12 mmol/L (10-20); BUN (Urea Nitrogen) 21 mg/dL (9.8-20.1); Bilirubin, Total 0.2 mg/dL (0.2-1.2); Calc. Creatinine Clearance 0 mL/min (70-130); Calcium 9.9 mg/dL (7.8-10.44); Carbon Dioxide 29 mmol/L (22-29); Chloride 100 mmol/L (98-107); Globulin 3.2 g/dL (2.4-3.5); Glucose 101 mg/dL (70-105); Lipase 79 U/L (8-78); Potassium 4.1 mmol/L (3.5-5.1); Protein, Total 7.6 g/dL (6.0-8.3); Sodium 137 mmol/L (136-145)
[2020-12-01 20:09] VITALS: BMI 30.6
[2020-12-01] MEDS ORDERED: Acetaminophen 325 MG TAB PO PRN (20:17)
[2020-12-01] MEDS ORDERED: Ondansetron PF 4 MG/2 ML Vial IVP PRN (20:17)
[2020-12-01] MEDS ORDERED: Nitroglycerin 0.4 MG TAB (25 Tab Bottle) SL PRN (20:17)
[2020-12-01] MEDS ORDERED: Atorvastatin Calcium 40 MG TAB PO SCH (21:00)
[2020-12-01] MEDS ORDERED: Metoprolol Tartrate 25 MG TAB PO SCH (21:00)
[2020-12-01] MEDS: Famotidine 20 MG TAB PO SCH (21:19)
[2020-12-01 21:58] LABS: Troponin I Less than 0.010 ng/mL (< 0.028)
[2020-12-02 01:03] LABS: Troponin I Less than 0.010 ng/mL (< 0.028)
[2020-12-02 05:18] LABS: #Basophils 0.1 thou/uL (0.0-0.2); #Eosinphils 0.2 thou/uL (0.0-0.7); #Lymphocytes 2.4 thou/uL (1.20-3.40); #Monocytes 0.4 thou/uL (0.11-0.59); #Neutrophils 2.6 thou/uL (1.40-6.50); %Basophils 0.9 % (0.0-1.0); %Eosinophils 3.9 % (0.0-10.0); %Lymphocytes 41.7 % (21.0-51.0); %Monocytes 7.8 % (0.0-10.0); %Neutrophils 45.7 % (42.0-75.0); Hemoglobin 13.4 g/dL (12.0-16.0); Mean Corpuscular HGB CONC 33.5 g/dL (32.0-36.0); Mean Corpuscular Hemoglobin 31.6 pg (27.0-31.0); Mean Corpuscular Volume 94.2 fL (78.0-98.0); Mean Platelet Volume 8.5 fL (7.4-10.4); Platelet Count 200 thou/uL (130-400); RBC Distribution Width 11.8 % (11.5-14.5); Red Blood Cell (RBC) Count 4.26 mill/uL (4.20-5.40); White Blood Cell (WBC) Count 5.6 thou/uL (4.8-10.8)
[2020-12-02 05:38] LABS: Anion Gap 11 mmol/L (10-20); BUN (Urea Nitrogen) 16 mg/dL (9.8-20.1); Calc. Creatinine Clearance 99 mL/min (70-130); Calcium 9.2 mg/dL (7.8-10.44); Carbon Dioxide 25 mmol/L (22-29); Chloride 106 mmol/L (98-107); Glucose 100 mg/dL (70-105); Potassium 3.9 mmol/L (3.5-5.1); Sodium 138 mmol/L (136-145)
[2020-12-02] MEDS: Famotidine 20 MG TAB PO SCH (08:56)
[2020-12-02] MEDS ORDERED: Aspirin Chewable 81 MG TAB PO SCH (09:00)
[2020-12-02] MEDS ORDERED: Clopidogrel Bisulfate 75 MG TAB PO SCH (09:00)
[2020-12-02 13:40] VITALS: TEMP 97.5
[2020-12-02] MEDS ORDERED: Promethazine 25 MG TAB PO PRN (15:25)
[2020-12-02 16:08] VITALS: BP 139/85
[2020-12-03] MEDS ORDERED: Levothyroxine Sodium 50 MCG TAB PO SCH (06:00)
== END 2020-12-02 16:49 | disposition home or self-care (01) ==
LOC: ERS 15:54 → 2NO 17:44
PROVIDERS: ADMIT Internal Medicine; ATTEND Internal Medicine
DX: R07.2 Precordial pain (principal); I25.10 Atherosclerotic heart disease of native coronary artery without angina pectoris; E03.9 Hypothyroidism, unspecified; E78.5 Hyperlipidemia, unspecified; G43.909 Migraine, unspecified, not intractable, without status migrainosus; Z79.02 Long term (current) use of antithrombotics/antiplatelets; Z79.899 Other long term (current) drug therapy; Z88.5 Allergy status to narcotic agent; Z88.8 Allergy status to other drugs, medicaments and biological substances; Z91.041 Radiographic dye allergy status; Z91.048 Other nonmedicinal substance allergy status; Z95.5 Presence of coronary angioplasty implant and graft
CPT/HCPCS: 36415; 71045; 80048; 80053; 83690; 84484; 85025; 93005; 94760; G0378

== ENCOUNTER 2021-04-05 08:56 | Outpatient (CLI) | payer OTHER | END 2021-04-05 08:57 | disposition home or self-care (01) | LOC: BICMAMMO 08:56 | PROVIDERS: ATTEND Advanced Practice Midwife | DX: N63.20 Unspecified lump in the left breast, unspecified quadrant (principal) | CPT/HCPCS: 77066; G0279 ==

== ENCOUNTER 2022-09-04 07:51 | Outpatient (CLI) | payer BC | END 2022-09-04 07:52 | disposition home or self-care (01) | LOC: BICMAMMO 07:51 | PROVIDERS: ATTEND Family Medicine | DX: Z12.31 Encounter for screening mammogram for malignant neoplasm of breast (principal) | CPT/HCPCS: 77063; 77067 ==

== ENCOUNTER 2023-10-10 07:53 | Outpatient (CLI) | payer BC | END 2023-10-10 07:54 | disposition home or self-care (01) | LOC: BICMAMMO 07:53 | PROVIDERS: ATTEND Family Medicine | DX: Z12.31 Encounter for screening mammogram for malignant neoplasm of breast (principal); Z85.828 Personal history of other malignant neoplasm of skin; Z91.89 Other specified personal risk factors, not elsewhere classified | CPT/HCPCS: 77063; 77067 ==

== ENCOUNTER 2024-01-23 15:09 | Outpatient (CLI) | payer BC | END 2024-01-23 15:10 | disposition home or self-care (01) | LOC: ULT 15:09 | PROVIDERS: ATTEND Family Medicine | DX: M25.551 Pain in right hip (principal); R22.42 Localized swelling, mass and lump, left lower limb | CPT/HCPCS: 76882 ==

== ENCOUNTER 2024-03-20 10:24 | Outpatient (CLI) | payer BC | END 2024-03-20 10:25 | disposition home or self-care (01) | LOC: CT 10:24 | PROVIDERS: ATTEND Family Medicine | DX: E61.1 Iron deficiency (principal); R10.9 Unspecified abdominal pain; R10.2 Pelvic and perineal pain; N20.0 Calculus of kidney; K76.89 Other specified diseases of liver; N28.89 Other specified disorders of kidney and ureter | CPT/HCPCS: 74176 ==

== ENCOUNTER 2024-05-15 14:31 | Outpatient (CLI) | payer BC ==
[2024-05-15] MEDS ORDERED: Iopamidol 370 76% 100 ML VIAL ONE (14:53)
== END 2024-05-15 14:32 | disposition home or self-care (01) ==
LOC: BICCT 14:31
PROVIDERS: ATTEND Urology
DX: R31.0 Gross hematuria (principal); N13.30 Unspecified hydronephrosis; K76.89 Other specified diseases of liver; N20.0 Calculus of kidney
CPT/HCPCS: 36415; 74178; 82565; Q9967

== ENCOUNTER 2024-06-04 12:40 | Outpatient (CLI) | payer BC ==
[2024-06-04] MEDS ORDERED: Furosemide 40 MG (4 mL) VIAL ONE (14:17)
== END 2024-06-04 12:41 | disposition home or self-care (01) ==
LOC: NM 12:40
PROVIDERS: ATTEND Urology
DX: R31.0 Gross hematuria (principal)
CPT/HCPCS: 78708; A4641; A9562; J1940

== ENCOUNTER 2025-03-26 12:11 | Outpatient (CLI) | payer BC | END 2025-03-26 12:12 | disposition home or self-care (01) | LOC: BICMAMMO 12:11 | PROVIDERS: ATTEND Family Medicine | DX: Z12.31 Encounter for screening mammogram for malignant neoplasm of breast (principal); Z85.828 Personal history of other malignant neoplasm of skin; Z91.89 Other specified personal risk factors, not elsewhere classified | CPT/HCPCS: 77063; 77067 ==